=== PATIENT | female | born 1990 | race Caucasian/White ===

== ENCOUNTER 2021-11-01 10:24 | Outpatient (REF) | payer OTHER, SELFPAY ==
[2021-11-01 10:32] LABS: MANUAL DIFF FLAG NO
[2021-11-01 10:38] LABS: Basophils Percent Auto 0.4 % (0-2); Eosinophils Absolute Auto 0.1 X10*3/uL (0.0-0.4); Eosinophils Percent Auto 1.7 % (0-4); Hematocrit 43.6 % (37.0-47.0); Hemoglobin 14.4 g/dl (12.0-16.0); Imm Gran Abs Auto 0.02 X10*3/uL (0.00-0.03); Imm Gran Pct Auto 0.3 % (0.0-0.4); Lymphocytes Absolute Auto 1.7 X10*3/uL (1.2-4.9); Lymphocytes Percent Auto 23.9 % (20-40); Mean Platelet Volume 10.6 fL (9.4-12.3); Monocytes Absolute Auto 0.6 X10*3/uL (0.1-1.2); Monocytes Percent Auto 8.9 % (2-11); Neutrophils Absolute Auto 4.7 x10*3/uL (2.0-8.3); Neutrophils Percent Auto 64.8 % (45-73); Platelet Count 284 X10*3/uL (160-400); Red Blood Count 4.64 X10*6/uL (4.20-5.50); Red Cell Distribution Width 12.4 % (11.0-16.0); White Blood Count 7.2 X10*3/uL (4.8-10.8)
[2021-11-01 10:54] LABS: Alanine Aminotransferase 16 U/L (0-31); Albumin Level 4.7 g/dL (3.5-5.0); Alkaline Phosphatase 64 U/L (39-117); Anion Gap 11 (12-20); Aspartate Amino Transferase 18 U/L (5-31); Bilirubin Total 0.8 mg/dL (0.0-1.0); Blood Urea Nitrogen 14 mg/dL (9-16); Calcium 10.1 mg/dL (8.4-10.2); Carbon Dioxide 30 mmol/L (22-29); Chloride 101 mmol/L (96-108); Cholesterol 184 mg/dL; Estimated Glomerular Filt Rate > 60; Glucose Fasting 97 mg/dL (60-99); HDL Cholesterol 70 mg/dL; LDL Cholesterol Calculated 102 mg/dl; Potassium 4.4 mmol/L (3.3-5.1); Sodium 138 mmol/L (135-145); Total Protein 7.7 g/dL (6.5-8.0); Triglycerides 64 mg/dL
== END 2021-11-01 10:25 | disposition home or self-care (01) ==
LOC: HO.LNP 10:24
PROVIDERS: Visit Provider Internal Medicine
DX: Z00.00 Encounter for general adult medical examination without abnormal findings (principal); F51.01 Primary insomnia; J35.8 Other chronic diseases of tonsils and adenoids; F41.9 Anxiety disorder, unspecified; F34.1 Dysthymic disorder; Z82.79 Family history of other congenital malformations, deformations and chromosomal abnormalities
CPT/HCPCS: 80053; 80061; 85025

== ENCOUNTER 2021-11-08 10:32 | Outpatient (REF) | payer OTHER, SELFPAY ==
[2021-11-08 10:56] LABS: Appearance Urine HAZY; Color Urine YELLOW; Glucose Urine UA NEG (NEG); Leukocyte Esterase Urine NEG (NEG); Nitrite Urine NEG (NEG); Urine Blood NEG (NEG); Urine Ketones NEG (NEG); Urine Protein NEG (NEG-TRACE)
[2021-11-08 11:16] LABS: Bacteria Urine 3+ /LPF; RBC Urine 0 /HPF (0); Squamous Epithelial Cell Urine 3+ /LPF; WBC Urine 0-2 /HPF (0-4)
== END 2021-11-08 10:33 | disposition home or self-care (01) ==
LOC: HO.LNP 10:32
PROVIDERS: PCP Internal Medicine; Visit Provider Internal Medicine
DX: R31.9 Hematuria, unspecified (principal)
CPT/HCPCS: 81001; 87086

== ENCOUNTER 2022-11-10 10:36 | Outpatient (REF) | payer OTHER, SELFPAY ==
[2022-11-10 10:38] LABS: MANUAL DIFF FLAG NO
[2022-11-10 10:50] LABS: Basophils Percent Auto 0.6 % (0-2); Eosinophils Absolute Auto 0.1 X10*3/uL (0.0-0.4); Eosinophils Percent Auto 1.6 % (0-4); Hematocrit 39.9 % (37.0-47.0); Hemoglobin 13.4 g/dl (12.0-16.0); Imm Gran Abs Auto 0.02 X10*3/uL (0.00-0.03); Imm Gran Pct Auto 0.3 % (0.0-0.4); Lymphocytes Absolute Auto 1.9 X10*3/uL (1.2-4.9); Lymphocytes Percent Auto 28.7 % (20-40); Mean Corpuscular HGB Conc 33.6 g/dl (31.0-35.0); Mean Corpuscular Hemoglobin 31.3 pg (27.0-33.0); Mean Corpuscular Volume 93.2 fL (80.0-98.0); Mean Platelet Volume 10.1 fL (9.4-12.3); Monocytes Absolute Auto 0.4 X10*3/uL (0.1-1.2); Monocytes Percent Auto 6.6 % (2-11); Neutrophils Absolute Auto 4.2 x10*3/uL (2.0-8.3); Neutrophils Percent Auto 62.2 % (45-73); Platelet Count 276 X10*3/uL (160-400); Red Blood Count 4.28 X10*6/uL (4.20-5.50); Red Cell Distribution Width 12.9 % (11.0-16.0); White Blood Count 6.7 X10*3/uL (4.8-10.8)
[2022-11-10 11:02] LABS: Alanine Aminotransferase 17 U/L (0-31); Albumin Level 4.5 g/dL (3.5-5.0); Alkaline Phosphatase 60 U/L (39-117); Anion Gap 11 (12-20); Aspartate Amino Transferase 21 U/L (5-31); Bilirubin Total 1.1 mg/dL (0.0-1.0); Blood Urea Nitrogen 14 mg/dL (9-16); Calcium 9.3 mg/dL (8.4-10.2); Carbon Dioxide 29 mmol/L (22-29); Chloride 104 mmol/L (96-108); Cholesterol 202 mg/dL; Estimated Glomerular Filt Rate > 60; Glucose Fasting 90 mg/dL (60-99); HDL Cholesterol 68 mg/dL; LDL Cholesterol Calculated 121 mg/dl; Potassium 4.1 mmol/L (3.3-5.1); Sodium 140 mmol/L (135-145); Total Protein 6.9 g/dL (6.5-8.0); Triglycerides 67 mg/dL
[2022-11-10 11:05] LABS: Appearance Urine Cloudy; Color Urine Dark Yellow; Glucose Urine UA Negative (Negative); Leukocyte Esterase Urine Trace (Negative); Nitrite Urine Negative (Negative); Specific Gravity - Urine >= 1.030 (1.005-1.025); UMIC TRIGGER UACC YES; Urine Blood Negative (Negative); Urine Ketones Trace mg/dL (Negative); Urine Protein Trace mg/dL (Neg-Trace)
[2022-11-10 11:10] LABS: Bacteria Urine 4+ (None Seen); WBC Urine 0-5 /HPF (0-5)
== END 2022-11-10 10:37 | disposition home or self-care (01) ==
LOC: HO.LNP 10:36
PROVIDERS: Visit Provider Internal Medicine
DX: Z00.00 Encounter for general adult medical examination without abnormal findings (principal)
CPT/HCPCS: 80053; 80061; 81001; 85025

== ENCOUNTER 2022-11-13 11:33 | Outpatient (REF) | payer OTHER, SELFPAY ==
[2022-11-13 11:52] LABS: Appearance Urine Clear; Color Urine Yellow; Glucose Urine UA Negative (Negative); Leukocyte Esterase Urine Negative (Negative); Nitrite Urine Negative (Negative); PH 7.5 (5.0-9.0); Specific Gravity - Urine <= 1.005 (1.005-1.025); Urine Blood Negative (Negative); Urine Ketones Negative (Negative); Urine Protein Negative (Neg-Trace)
[2022-11-13 11:58] LABS: Bacteria Urine Trace (None Seen); Hyaline Casts Urine 0-2 /LPF (0-2); RBC Urine 0-2 /HPF (0-2); Squamous Epithelial Cell Urine 0-2 /HPF (0-2); WBC Urine 0-5 /HPF (0-5)
== END 2022-11-13 11:34 | disposition home or self-care (01) ==
LOC: HO.LNP 11:33
PROVIDERS: Visit Provider Internal Medicine
DX: R31.9 Hematuria, unspecified (principal)
CPT/HCPCS: 81001

== ENCOUNTER 2023-07-03 15:03 | Outpatient (REF) | payer OTHER, SELFPAY ==
--- NOTE | ~2023-07-03 | XR_ITS ---
EXAMINATION: XR CHEST CLINICAL INFORMATION: Bronchitis. COMPARISON: None available. TECHNIQUE: 2 views of the chest were obtained. FINDINGS: No significant abnormality is noted involving the heart, lungs, mediastinum, bony thorax or soft tissues. XR/XR chest 2V IMPRESSION: Unremarkable examination.
== END 2023-07-03 15:04 | disposition home or self-care (01) ==
LOC: HO.HMGCX 15:03
PROVIDERS: PCP Internal Medicine; Visit Provider Internal Medicine
DX: J40 Bronchitis, not specified as acute or chronic (principal)
CPT/HCPCS: 71046

== ENCOUNTER 2023-11-09 12:14 | Outpatient (REF) | payer OTHER, SELFPAY ==
[2023-11-09 12:17] LABS: MANUAL DIFF FLAG NO
[2023-11-09 12:23] LABS: Basophils Percent Auto 0.4 % (0-2); Eosinophils Absolute Auto 0.2 X10*3/uL (0.0-0.4); Eosinophils Percent Auto 3.8 % (0-4); Hematocrit 41.8 % (37.0-47.0); Hemoglobin 14.3 g/dl (12.0-16.0); Imm Gran Abs Auto 0.01 X10*3/uL (0.00-0.03); Imm Gran Pct Auto 0.2 % (0.0-0.4); Lymphocytes Absolute Auto 2.1 X10*3/uL (1.2-4.9); Lymphocytes Percent Auto 38.7 % (20-40); Mean Corpuscular HGB Conc 34.2 g/dl (31.0-35.0); Mean Corpuscular Hemoglobin 31.5 pg (27.0-33.0); Mean Corpuscular Volume 92.1 fL (80.0-98.0); Mean Platelet Volume 10.1 fL (9.4-12.3); Monocytes Absolute Auto 0.4 X10*3/uL (0.1-1.2); Monocytes Percent Auto 7.8 % (2-11); Neutrophils Absolute Auto 2.7 x10*3/uL (2.0-8.3); Neutrophils Percent Auto 49.1 % (45-73); Platelet Count 218 X10*3/uL (160-400); Red Blood Count 4.54 X10*6/uL (4.20-5.50); Red Cell Distribution Width 12.2 % (11.0-16.0); White Blood Count 5.5 X10*3/uL (4.8-10.8)
[2023-11-09 12:42] LABS: Alanine Aminotransferase 22 U/L (0-31); Albumin Level 4.4 g/dL (3.5-5.0); Alkaline Phosphatase 56 U/L (39-117); Anion Gap 12 (12-20); Aspartate Amino Transferase 21 U/L (5-31); Bilirubin Total 0.5 mg/dL (0.0-1.0); Blood Urea Nitrogen 11 mg/dL (9-16); Calcium 9.5 mg/dL (8.4-10.2); Carbon Dioxide 29 mmol/L (22-29); Chloride 103 mmol/L (96-108); Cholesterol 196 mg/dL (<200); Estimated Glomerular Filt Rate > 60; Glucose Fasting 87 mg/dL (60-99); HDL Cholesterol 59 mg/dL (>40); LDL Cholesterol Calculated 114 mg/dL (<100); Potassium 3.9 mmol/L (3.3-5.1); Sodium 140 mmol/L (135-145); Total Protein 7.6 g/dL (6.5-8.0); Triglycerides 117 mg/dL (<150)
[2023-11-09 12:43] LABS: Appearance Urine Clear; Color Urine Yellow; Glucose Urine UA Negative (Negative); Leukocyte Esterase Urine Trace (Negative); Nitrite Urine Negative (Negative); Specific Gravity - Urine 1.025 (1.005-1.025); UMIC TRIGGER UACC YES; Urine Blood Negative (Negative); Urine Ketones Negative (Negative); Urine Protein Negative (Neg-Trace)
[2023-11-09 12:48] LABS: Bacteria Urine 1+ (None Seen); Hyaline Casts Urine 0-2 /LPF (0-2); RBC Urine 0-2 /HPF (0-2); WBC Urine 0-5 /HPF (0-5)
== END 2023-11-09 12:15 | disposition home or self-care (01) ==
LOC: HO.LNP 12:14
PROVIDERS: Visit Provider Internal Medicine
DX: Z00.00 Encounter for general adult medical examination without abnormal findings (principal)
CPT/HCPCS: 80053; 80061; 81001; 85025

== ENCOUNTER 2023-11-24 16:09 | Outpatient (REF) | payer OTHER, SELFPAY ==
--- NOTE | ~2023-11-24 | US_ITS ---
EXAMINATION: US EXTREMITY, NONVASCULAR CLINICAL INFORMATION: Axillary adenitis. COMPARISON: None available. TECHNIQUE: Using a linear transducer with grayscale and color modalities, ultrasound examination is performed of the right axillary region. FINDINGS: Corresponding with the palpable finding the upper right axillary region, a 3 x 2 x 3 mm hypoechoic, subdermal lesion is noted. Shows no associated color Doppler flow and no significant change in through sound transmission. The adjacent cutaneous, subcutaneous, muscular and fascial planes are unremarkable. No sizable lymphadenopathy is seen. US/US extremity nonvascular IMPRESSION: Corresponding with the palpable finding in the upper right axillary region, a 3 mm subdermal hypoechoic collection is seen. Likely differential considerations include an epidermal inclusion cyst and a nonpathologically enlarged lymph node. Recommend management on a clinical basis. No sizable lymphadenopathy is seen.
== END 2023-11-24 16:10 | disposition home or self-care (01) ==
LOC: HO.US 16:09
PROVIDERS: PCP Internal Medicine; Visit Provider Internal Medicine
DX: I88.9 Nonspecific lymphadenitis, unspecified (principal); R22.31 Localized swelling, mass and lump, right upper limb
CPT/HCPCS: 76882

== ENCOUNTER 2024-11-11 09:44 | Outpatient (REF) | payer OTHER, SELFPAY ==
[2024-11-11 09:47] LABS: MANUAL DIFF FLAG NO
[2024-11-11 10:07] LABS: Basophils Percent Auto 0.6 % (0-2); Eosinophils Absolute Auto 0.1 X10*3/uL (0.0-0.4); Eosinophils Percent Auto 1.8 % (0-4); Hematocrit 39.1 % (37.0-47.0); Hemoglobin 13.2 g/dl (12.0-16.0); Lymphocytes Absolute Auto 1.7 X10*3/uL (1.2-4.9); Lymphocytes Percent Auto 33.1 % (20-40); Mean Corpuscular HGB Conc 33.8 g/dl (31.0-35.0); Mean Corpuscular Hemoglobin 30.8 pg (27.0-33.0); Mean Corpuscular Volume 91.4 fL (80.0-98.0); Mean Platelet Volume 9.7 fL (9.4-12.3); Monocytes Absolute Auto 0.3 X10*3/uL (0.1-1.2); Monocytes Percent Auto 5.4 % (2-11); Neutrophils Absolute Auto 2.9 x10*3/uL (2.0-8.3); Neutrophils Percent Auto 59.1 % (45-73); Platelet Count 263 X10*3/uL (160-400); Red Blood Count 4.28 X10*6/uL (4.20-5.50); Red Cell Distribution Width 12.4 % (11.0-16.0)
[2024-11-11 10:18] LABS: Alanine Aminotransferase 22 U/L (0-31); Albumin Level 4.2 g/dL (3.5-5.0); Alkaline Phosphatase 63 U/L (39-117); Anion Gap 9 (12-20); Aspartate Amino Transferase 28 U/L (5-31); Bilirubin Total 0.8 mg/dL (0.0-1.0); Blood Urea Nitrogen 13 mg/dL (9-16); Calcium 9.1 mg/dL (8.4-10.2); Carbon Dioxide 27 mmol/L (22-29); Chloride 107 mmol/L (96-108); Cholesterol 191 mg/dL (<200); Estimated Glomerular Filt Rate > 60; Glucose Fasting 93 mg/dL (60-99); HDL Cholesterol 64 mg/dL (>40); LDL Cholesterol Calculated 113 mg/dL (<100); Sodium 139 mmol/L (135-145); Triglycerides 74 mg/dL (<150)
== END 2024-11-11 09:45 | disposition home or self-care (01) ==
LOC: HO.LNP 09:44
PROVIDERS: Visit Provider Internal Medicine
DX: Z00.00 Encounter for general adult medical examination without abnormal findings (principal)
CPT/HCPCS: 80053; 80061; 85025

== ENCOUNTER 2024-11-18 08:51 | Outpatient (REF) | payer OTHER, SELFPAY ==
[2024-11-18 10:56] LABS: Appearance Urine Cloudy; Color Urine Yellow; Glucose Urine UA Negative (Negative); Leukocyte Esterase Urine Negative (Negative); Nitrite Urine Negative (Negative); PH 6.5 (5.0-9.0); Urine Blood Negative (Negative); Urine Ketones Negative (Negative); Urine Protein Negative (Neg-Trace)
[2024-11-18 11:04] LABS: Bacteria Urine Trace (None Seen); Hyaline Casts Urine 0-2 /LPF (0-2); RBC Urine 0-2 /HPF (0-2); Squamous Epithelial Cell Urine 0-2 /HPF (0-2); WBC Urine 0-5 /HPF (0-5)
--- OUTSIDE RECORDS SUMMARY | 2024-11-18 11:07 | XMS_ITS ---
Author Organization Sourva Cobb MD Address [address] [place], [place] [id number] Care Team Providers Care Muff Winder Name Role Phone Sourav Cobb Primary Care Provider Allergies Allergen (clinical drug ingredient) Drug/Non Drug Allergy documented on EMR Reaction Allergy Type Onset Date Status ciprofloxacin Cipro rash Drug Allergy Act emmett Results Component Value Reference Range Notes UA ClnCatch+Micro w/rflx Cul t (Not yet reviewed by provider) Interpretation: Performing Lab:[facility], [address] [place] [phone] Notes/Report: Urine, Clean Catch Color Urine Yellow Appearance Urine Cloudy PH 6.5 5.0-9.0 Glucose Urine UA Negative Negative mg/dL Urine Blood Negative Negative Specific [place] - Urine 1.020 1.005-1.025 Urine Protein Negative [...] Labyrinthine dysfunc tion, 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) Referral Organization Sourav Cbob MD Referring Provider First Name Sourav Referring Provider Last Name Reza Referring Provider Speciality Internal M edicine Referred Provider [facility] 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) Active confirmed Vital Signs Blood pressure systolic 104 mm Hg 11/19/19 25 Blood pressure diastolic 62 mm Hg 025 Height 64.25 in 11/18/2024 Weight 143 lbs 11/18/2024 BMI 24.35 kg/m2 11/18/2024 weight is down 3 pounds the [facility] e 11-16-23 Encounters Encounter Location Date Provider Diagnosis Sourav Cobb MD [address] [place] [address] [address] [place], [place] [phone] 11/18/2024 Sourav Cobb Annual physical exam Z00.00 [...] e current regiment Depression screening negative screen Pending Test Test Name Order Date TSH reflex Free T4 11/18/2024 UA ClnCatch+Micro w/rflx Cult 11/18/2024 Referrals Referral Date Details 11/18/2024 11/18/2024, Labyrint les dysfunction bilateral please eval and treat for labyrinth therapy, [facility] Next Appt Details Follow Up: 6 Months, Reason: Provider Name:Sourav camarena, 06/06/2025 08:30:00 AM, [address] [place] [address], [address], [place], [place], [phone], Provider Name:Sourav camarena, 10/26/2025 07:00:00 AM, [address] [place] [address], [address], [place], [place], [phone], Provider Name:Sourav Chiu ier, 11/02/2025 08:30:00 AM, [address], [address], [place], [phone], Progress Notes * Stephani CHAMBERS ADOB:1990 (33 yo F)Acc No.[id number]:11/18/2024 Progress Notes Patient:?Stephani CHAMBERS A Provider:?Sourav Cobb MD :1990???Age:33 Y???Sex:Female D ate:11/18/2024 Address:[address] [place], [place] [id number] Subjective: * Chief Complaints: * ???1. ANNUAL EXAM. * HPI: ???Depression Screening:?PHQ-9?Little interest or pleasure in doing things?Not at all,?Feeling down, depressed, or hopeless?Not at all,?Trouble falling or staying asleep, or sleeping too much?Not at all,?Feeling tired or having little energy?Not at all,?Poor appetite or overeating?Not at all,?Feeling bad about yourself or that you are a failure, or have let yourself or your family down?Not at all,?Trouble concentrating on things, such as reading the newspaper or watching television?Not at all,?Moving or speaking so slowly that other people could have noticed; or the opposite, being so fidgety or restless that you have been moving around a lot more than usual?Not at all,?Thoughts that you would be better off or of hurting yourself in some way?Not at all,?Total Score?0.?Interpretation and Intervention?Depression Screening Findings?Negative,?Follow-Up for Depression?: review of PHQ-9 found negative result, no follow-up needed.? gets light headed for a couple seconds at time. today. ???Communication Needs:?Communication Needs?Does the patient have a hearing impairment?No,?Does the patient have a vision impairment??Yes,?If yes, what is the vision impairment??Contact Lenses,?Does the patient have a cognition impairment??No.?SDOH Questions:?SDOH Questions?In the past year have you been worried about losing housing??No,?In the past year have you or any family members you live with been unable to get any of the following when it was really needed? Check all that apply:?None.?Symptom(s):?patient is a 33 yo female here for ann visit with review of recent labs and follow up of chronic issue. * ROS:?General/Constitutional:?Change in appetite?denies.?Chills?denies.?Fever?denies.?Ophthalmologic:?Blurred vision?denies.?Discharge?denies.?Pain?denies.?ENT:?Decreased hearing?denies.?Sore throat?denies.?Swollen glands?denies.?Endocrine:?Cold intolerance?denies.?Excessive thirst?denies.?Heat intolerance?denies.?Weight loss?denies.?Respiratory:?Cough?denies.?Shortness of breath at rest?denies.?Shortness of breath with exertion?denies.?Wheezing?denies.?Cardiovascular:?Chest pain at rest?denies.?Chest pain with exertion?denies.?Irregular heartbeat?denies.?Shortness of breath?denies.?Gastrointestinal:?Abdominal pain?denies.?Change in bowel habits?denies.?Diarrhea?denies.?Nausea?denies.?Rectal bleeding?denies.?Vomiting?denies .?Genitourinary:?Blood in urine?denies.?Difficulty urinating?denies.?Frequent urination?denies.?Urinary incontinence?Denies.?Musculoskeletal:?Patient complaining of?lumps in both axilla.?Painful joints?denies.?Weakness?denies.?Skin:?Dry skin?denies.?Itching?denies.?Denies?Mole(s),? changes in moles, new moles or any lesions of concern.?Denies?Photosensitivity.?Rash?denies.?Neurologic:?Dizziness?denies.?Fainting?denies.?Headache?denies.? 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 * Family History:?Father: alimariluz e 64 yrs.?Mother: alive 63 yrs.?Maternal Grand Mother: , diabetes.?1 brother(s) , 1 sister(s) . 1 daughter(s) . .? Father-Healthy Parkinson's Mother-Healthy, Denies mental health/substance abuse family history, Denies mental health/substance abuse family history. * Social History:?Tobacco Use:?Tobacco Use/Smoking?Patient is a?nonsmoker,?Additional Findings: Tobacco Non-User?Current non-smoker, currently using no form of tobacco.?Drugs/Alcohol:?Alcohol Screen?Did you have a drink containing alcohol in the past year??Yes,?How often did you have a drink containing alcohol in the past year??2 to 4 times a month (2 points),?How many drinks did you have on a typical day when you were drinking in the past year??1 or 2 drinks (0 point),?How often did you have 6 or more drinks on one occasion in the past year??Never (0 point),?Points?2,?Interpretation?Negative.?Miscellaneous:?Caffeine: yes, frequency:, 1-2 cups per day. Children: yes. 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 Exercise: yes, walking and stretching. Housing: renting with her daughter. Living with: daughter. Marital status: single. Occupation: works full-time. Pets: none. Travel outside of the [place]: no. * Medications:?Taking Mirena ( 52 MG) 20 MCG/24HR Intrauterine Device Intrauterine , Taking Albuterol Sulfate HFA 108 (90 Base) MCG/ACT Aerosol Solution 1 puff as needed Inhalation every 4 hrs , Taking Advair Diskus 250-50 MCG/ACT Aerosol Powder Breath Activated 1 puff Inhalation Twice a day , Taking Sertraline HCl 100 MG Tablet TAKE ONE TABLET BY MOUTH EVERY DAY , Not-Taking/PRN Tylenol Extra Strength 500 MG Tablet 1 tablet as needed Orally every 6 hrs , Not-Taking/PRN Lexapro 10 MG Tablet 1 tablet Orally Once a day , Not-Taking/PRN Ambien 5 MG Tablet 1 tablet at bedtime Orally Once a day , Not-Taking/PRN Ventolin HFA * 0 Aerosol Solution 2 puffs as needed Inhalation every 4 hrs , Medication List reviewed and reconciled with the patient * Allergies:?Cipro: rash. Objective: * Vitals:?Ht: 64.25, Wt: 143, BMI:24.35, BP:104/62, Wt-k.86. weight is down 3 pounds since 11-16-23. * ???Past Orders: ???Lab:Complete Blood Count Auto Diff (Order Date - 11/11/2024) (Collection Date & Time - 11/11/2024 07:30 AM) ? Value Reference Range ?White Blood Count 5.0 4. 8-10.8 - X10*3/uL ?Red Blood Count 4.28 4.20 -5.50 - X10*6/uL ?Hemoglobin 13.2 12.0-16.0 - g/dl ?Hematocrit 39.1 37.0-47.0 - % ?Mean Corpuscular Volume 91.4 80.0-98.0 - fL ?Mean Corpuscular Hemoglobin 30.8 27.0-33.0 - pg ?Mean Corpuscular HGB Conc 33.8 31.0-35.0 - g/dl ?Red Cell Distribution Width 12.4 11.0-16.0 - % ?Platelet Count 263 160-4 00 - X10*3/uL ?Mean Platelet Volume 9.7 9.4-12.3 - fL ?Neutrophils Percent Auto 59.1 45-73 - % ?Imm Gran Pct Auto 0.0 0. 0-0.4 - % ?Lymphocytes Percent Auto 33.1 20-40 - % ?Monocytes Percent Auto 5.4 2-11 - % ?Eosinophils Percent Auto 1.8 0-4 - % ?Basophils Percent Auto 0.6 0-2 - % ?NRBC Pct Auto 0.0 0.0-0. 2 - /100WBC ?Neutrophils Absolute Auto 2.9 2.0-8.3 - x10*3/uL ?Imm Gran Abs Auto 0.00 0. 00-0.03 - X10*3/uL ?Lymphocytes Absolute Auto 1.7 1.2-4.9 - X10*3/uL ?Monocytes Absolute Auto 0.3 0.1-1.2 - X10*3/uL ?Eosinophils Absolute Auto 0.1 0.0-0.4 - X10*3/uL ?Basophils Absolute Auto 0.0 0.0-0.2 - X10*3/uL ?NRBC Abs Auto 0.000 0.0-0. 012 - X10*3/uL ???Lab:Comprehensive [place]. P ivana Fast (Order Date - 11/11/2024) (Collection Date & Time - 11/11/2024 07:30 AM) ? Value Reference Range ?Sodium 139 135-145 - mmo l/L ?Bilirubin Total 0.8 0.0- 1.0 - mg/dL ?Aspartate Amino Transferase 28 5-31 - U/L ?Alanine Aminotransferase 22 0-31 - U/L ?Total Protein 7.0 6.5-8. 0 - g/dL ?Albumin Level 4.2 3.5-5. 0 - g/dL ?Alkaline Phosphatase 63 39-117 - U/L ?Potassium 4.0 3.3-5.1 - mmol/L ?Chloride 107 96-108 - mm ol/L ?Carbon Dioxide 27 22-29 - mmol/L ?Anion Gap 9 L 12-20 - ?Blood Urea Nitrogen 13 9-16 - mg/dL ?Creatinine 0.68 0.5-1.4 - mg/dL ?Estimated Glomerular Filt Rate > 60 - ?Glucose Fasting 93 60-9 9 - mg/dL ?Calcium 9.1 8.4-10.2 - m g/dL ???Lab:Lipid Panel (Order Da te - 11/11/2024) (Collection Date & Time - 11/11/2024 07:30 AM) ? Value Reference Range ?Triglycerides 74 <150 - mg/dL ?Cholesterol 191 <200 - m g/dL ?LDL Cholesterol Calculated 113 H <100 - mg/dL ?HDL Cholesterol 64 >40 - mg/dL * Examination: ???General Examination: ?GENERAL APPEARANCE:?well developed, well nourished, in no acute distress.?HEAD:?normocephalic, atraumatic.?EYES:?pupils equal, round, reactive to light and accommodation, sclera non-icteric.?EARS:?normal.?ORAL CAVITY:?mucosa moist.?THROAT:?clear.?NECK/THYROID:?neck supple, full range of motion, no cervical lymphadenopathy, no bruits with a pea sized node in the laeft ant chain that is smooth and freely movable and feels benign.?SKIN:?warm and dry, no suspicious lesions.?HEART:?regular rate and rhythm, S1, S2 normal, no murmurs.?LUNGS:?clear to auscultation bilaterally.?BREASTS:?No mass, no lump.?ABDOMEN:?soft, nontender, nondistended, bowel sounds present, normal, no organomegaly , no masses palpable.?RECTAL EXAM:?done by supervisor packing.?FEMALE GENITOURINARY:?done by supervisor packing.?EXTREMITIES:?no clubbing, cyanosis, or edema on careful exam of both axillae there is no lump felt and the area of which she is concerned feels like a muscle.?NEUROLOGIC:?nonfocal, motor strength normal upper and lower extremities, sensory exam intact.? Assessment: * Assessment: 1.?Annual physical exam - Z0 0.00???2.?Labyrinthine dysfunction, bilateral - H83.2X3???3.?Lethargy - R53.83???4.?Anxiety - F41.9???5.?Depression screening - Z13.31??? Plan: * Treatment: 2.?Labyrinthine dysfunction, bilateral? Notes: refer to physical therap for labyrinth therapy? Referral To:[facility]??Physical Therapist ?Reason:Labyrinthine dysfunction bilateral please eval and treat for labyrinth therapy 3.?Lethargy? Notes: pending labs, will continue to monitor?? 4.?Anxiety? Notes: stable, will continue current regiment?? 5.?Depression screening? Notes: negative screen?? * Procedure Codes:?57564 VENIP UNCT, ROUTINE* * Follow Up:?6 Months * * The named appointment provid er may or may not be the originator of this progress note, and it is not deemed complete until electronically signed by the appointment provider. Sign off status: Pending * Provider:?Sourav Cobb MD Date:?0 11/18/2024 Generated for Stewart garcia/Criss/Babatundeitting on:?11/18/2024 11:07 AM EDT History and Physical Notes * HPI [...] patient have a vision impairmen t?: Yes ?If yes, what is the vision impairment?: Contact Lenses Does the patient have a cognition impair ment?: No Examination Category Sub-Category Detail Notes Category Not es General Examination GENERAL APPEARANCE: well dev eloped, well nourished, in no acute distress HEAD: normocephalic, atrau matic EYES: pupils equal, round, reactive to light and accommodation, sclera non- icteric EARS: normal THROAT: clear NECK/THYROID: neck supple, [...] mass, no lump RECTAL EXAM: done by supervisor packing FEMALE GENITOURINARY: done by supervisor packing ORAL CAVITY: mucosa moist Consultation Request Notes Referral Date Referring Provider Referred Provider Not 11/18/2024 Sourav Cobb [facility] Labyrinth ine dysfunction bilateral please eval and treat for labyrinth therapy
--- OUTSIDE RECORDS SUMMARY | 2024-11-18 11:07 | XMS_ITS ---
Author Organization Sourav Cobb MD Address [address] [facility] [address] [place] [phone] Care Team Providers Care Automation Software Engineer Name Role Phone Sourav Cobb Primary Care Provider REASON FOR VISIT referral to fish and wildlife biologist Encounters Encounter Location Date Provider Diagnosis Sourav Cobb MD [address] [place] [address] [place] [phone] 06/06/2024 Sourav Cobb Plan Of Treatment Next Appt Details Provider Name:Sourav camarena, 06/06/2025 08:30:00 AM, [address] [place] [address], [address], [phone], Provider Name:Sourav Chiu iejad, 10/26/2025 07:00:00 AM, [address] [place] [address], [address], [phone], Provider Name:Sourav Chiu ier, 11/02/2025 08:30:00 AM, [address] [place] [address], [phone], Progress Notes * NAN Stephani ADOB:1990 (33 yo F)Acc No.[id number]:06/06/2024 Patient:?NanStephani :1990???Age:33 Y???Sex:Female Address:[address] [place] [address], [place], [address] Subjective: * Chief Complaints: * ???Referral to fish and wildlife biologist * Medical History:? * Surgical History:? * Hospitalization/Major Diagno stic Procedure:? * Medications:? Objective: Assessment: Plan: * Treatment: * Procedure Codes:? * true * Date:? Generated for Stewart garcia/Criss/Jona on:?11/18/2024 11:07 AM EDT
--- OUTSIDE RECORDS SUMMARY | 2024-11-18 11:07 | XMS_ITS ---
Author Organization Sourav Cobb MD Address [address] [place], [place] [phone] Care Team Providers Care Stamp Clerk Name Role Phone Sourav Cobb Primary Care Provider Results Component Value Reference Range Notes Complete Blood Count Auto Di ff Reviewed date:11/11/2024 03:37:09 PM Interpretation: Performing Lab:[facility], [address] [place] [phone] Notes/Report: White Blood Count 5.0 4.8-10.8 X10*3/uL [...] NRBC Abs Auto 0.000 0.0-0.012 X10*3/uL Comprehensive [place]. Panel Fa st Reviewed date:11/11/2024 10:29:23 AM Interpretation: Performing Lab:[address] [phone] Notes/Report: Sodium 139 135-145 mmol/L Potassium 4.0 [...] Panel Reviewed date:11/11/2024 10:25:56 AM Interpretation: Performing Lab:[facility], [address] [place] [phone] Notes/Report: Triglycerides 74 <150 mg/dL Desirable Triglyceride: [...] Location Date Provider Diagnosis Sourav Cobb MD [address] [place] [phone] 11/11/2024 Sourav Cobb Blood tests for routine general physical examination Z00.00 Assessments Encounter Date Diagnosis (ICD Code) Assessment Notes Treatment Notes Treatment Clinical Notes Section Notes 11/11/2024 Blood tests for routine general physical examination (ICD-10 - Z00.00) Plan Of Treatment Pending Test Test Name Order Date UA ClnCatch+Micro w/rflx Cult 11/11/2024 Next Appt Details Provider Name:Sourav camarena, 06/06/2025 08:30:00 AM, [address] [place] [address], [address], [phone], Provider Name:Sourav camarena, 10/26/2025 07:00:00 AM, [address] [place] [address], [address], [phone], Provider Name:Sourav garcíar, 11/02/2025 08:30:00 AM, [address] [place] [address], [phone], Progress Notes * NANStephani ADOB:1990 (33 yo F)Acc No.[id number]:11/11/2024 Progress Note Patient:?Stephani CHAMBERS Cuong Provider:?Sourav Cobb MD :1990???Age:33 Y???Sex:Female D ate:11/11/2024 Address:[address] [facility] Subjective: * Chief Complaints: * ???1. FASTING LABS. * Medical History:? Objective: * Vitals:? Assessment: * Assessment: 1.?Blood tests for routine g eneral physical examination - Z00.00 (Primary)??? Plan: * Treatment: * Procedure Codes:?86203 VENIP UNCT, ROUTINE* * * The named appointment provid er may or may not be the originator of this progress note, and it is not deemed complete until electronically signed by the appointment provider. Sign off status: Pending * Provider:?Sourav Cobb MD Date:?0 11/11/2024 Generated for Stewart garcia/Criss/Babatundeitting on:?11/18/2024 11:07 AM EDT
--- OUTSIDE RECORDS SUMMARY | 2024-11-18 11:08 | XMS_ITS | Patient Health Record ---
Author Organization Sourav Cobb MD Address [address] [place], [place] [id number] Care Team Providers Care Informatics Developer Name Role Phone Sourav Cobb Primary Care Provider Allergies Allergen (clinical drug ingredient) Drug/Non Drug Allergy documented on EMR Reaction Allergy Type Onset Date Status ciprofloxacin Cipro rash Drug Allergy Act emmett Results Component Value Reference Range Notes Complete Blood Count Auto Di ff Reviewed date:11/11/2024 03:37:09 PM Interpretation: Performing Lab:[facility], [address] [place] [phone] Notes/Report: White Blood Count 5.0 4.8-10.8 X10*3/uL [...] 0.0-0.2 /100WBC Neutrophils Absolute Auto 2.9 2.0-8.3 x10*3/uL Imm Gran Abs Auto 0.00 0.00-0.03 X10*3/uL Lymphocytes Absolute Auto 1.7 1.2-4.9 X10*3/uL Monocytes Absolute Auto 0.3 0.1-1.2 X10*3/uL Eosinophils Absolute Auto 0.1 0.0-0.4 X10*3/uL Basophils Absolute Auto 0.0 0.0-0.2 X10*3/uL NRBC Abs Auto 0.000 0.0-0.012 X10*3/uL Comprehensive [place]. Panel Fa Reviewed date:11/11/2024 10:29:23 AM Interpretation: Performing Lab:[facility], [address] [place] [phone] Notes/Report: Sodium 139 135-145 mmol/L Potassium 4.0 [...] Panel Reviewed date:11/11/2024 10:25:56 AM Interpretation: Performing Lab:[facility], [address] [place] [phone] Notes/Report: Triglycerides 74 <150 mg/dL Desirable Triglyceride: [...] liver disease. UA ClnCatch+Micro w/rflx Cul t (Not yet reviewed by provider) Interpretation: Performing Lab:[facility], [address] [place] [phone] Notes/Report: Urine, Clean Catch Color Urine Yellow Appearance Urine Cloudy PH 6.5 5.0-9.0 Glucose Urine UA Negative Negative mg/dL Urine Blood Negative Negative Specific Jay - Urine 1.020 1.005-1.025 Urine Protein Negative Neg-Trace mg/dL Urine Ketones Negative Negative mg/dL Nitrite Urine Negative Negative Leukocyte Esterase Urine Negative Negative RBC Urine 0-2 0-2 /HPF WBC Urine 0-5 0-5 /HPF Squamous Epithelial Cell Urine 0-2 0-2 /HPF Bacteria Urine Trace None Seen Hyaline Casts Urine 0-2 0-2 /LPF US extremity nonvascular Reviewed date:12/18/2023 07:20:07 AM Interpretation: Performing Lab: Notes/Report: [address] [address] Ultrasound Report Signed with Addenda Patient: Stephani Chambers MR#: [id number] 6 : 1990 Acct:[id number] Age/Sex: 32 / F ADM Date: 11/24/23 Loc: HO.US Attending Dr: Sourav Cobb MD Ordering Physician: Sourav Cobb MD Date of Service: 11/24/23 Procedure(s): US extremity nonvascular Accession Number(s): [id number] cc: Sourav Cobb MD ADDENDUM FINDINGS: Ultrasound comparison images are obtained by the technologist of the contralateral left axilla, which is asymptomatic. These images are normal, without mass, fluid collection or lymphadenopathy noted. Addendum Dictated By: Mark Torres MD Addendum Signed By: <Electronically signed by Mark Torres MD in OV> 12/17/23 1841 Addendum Cosigned By: DD/ /09/1633 TD/TT: / EXAMINATION: US EXTREMITY, NONVASCULAR CLINICAL INFORMATION: Axillary adenitis. COMPARISON: None available. TECHNIQUE: Using a linear transducer with grayscale and color modalities, ultrasound examination is performed of the right axillary region. FINDINGS: Corresponding with the palpable finding the upper right axillary region, a 3 x 2 x 3 mm hypoechoic, subdermal lesion is noted. Shows no associated color Doppler flow and no significant change in through sound transmission. The adjacent cutaneous, subcutaneous, muscular and fascial planes are unremarkable. No sizable lymphadenopathy is seen. US/US extremity nonvascular IMPRESSION: Corresponding with the palpable finding in the upper right axillary region, a 3 mm subdermal hypoechoic collection is seen. Likely differential considerations include an epidermal inclusion cyst and a nonpathologically enlarged lymph node. Recommend management on a clinical basis. No sizable lymphadenopathy is seen. Dictated By: Mark Torres MD Signed By: <Electronically signed by Mark Torres MD in OV> 11/25/23 0847 DD/ 32 TD/TT: Dairy Feed Mixing Operator: [address] [address] Ultrasound Report Signed with Addenda Patient: Stephani Chambers MR#: [id number] 6 : 1990 Acct:[id number] Age/Sex: 32 / F ADM Date: 11/24/23 Loc: .US Attending Dr: Sourav Cobb MD Ordering Physician: Sourav Cobb MD Date of Service: 11/24/23 Procedure(s): US extremity nonvascular Accession Number(s): [id number] cc: Sourav Cobb MD ADDENDUM FINDINGS: Ultrasound compariso n images are obtained by the technologist of the contralateral left axilla, which is asymptomatic. These images are normal, without mass , fluid collection or lymphadenopathy noted. Addendum Dictated By : Mark Torres MD Addendum Signed By: <Electronically signed by Mark Torres MD in OV> 12/17/23 1841 Addendum Cosigned By: DD/ /09/1633 TD/TT: / EXAMINATION: US EXTREMITY, NONVASCULAR CLINICAL INFORMATION: Axillary adenitis. COMPARISON: None available. TECHNIQUE: Using a linear trans ducer with grayscale and color modalities, ultrasound examinati on is performed of the right axillary region. FINDINGS: Corresponding with t he palpable finding the upper right axillary region, a 3 x 2 x 3 mm hypoechoic, subdermal lesion is noted. Shows no associated color Dop pler flow and no significant change in through sound transmission. The adjacent cutaneo us, subcutaneous, muscular and fascial planes are unremarkable. No siz able lymphadenopathy is seen. U S/US extremity nonvascular IMPRESSION: Corresponding with t he palpable finding in the upper right axillary region, a 3 mm subde rmal hypoechoic collection is seen. Likely differential considerations include an epidermal inclusion cyst and a nonpathologically enlarged lymph node. Recommend management on a clinical basis. No sizable lymphadenopathy is seen. Dictated By: Brandan Torres MD Signed By: <Electronically signed by Mark Torres MD in OV> 11/25/23 0847 DD/ 163 TD/TT: Actuarial Mathematician ist: ELIZABETH Patino (Not yet reviewed by provider) Interpretation: Performing Lab:[facility], [address] [place] [phone] Notes/Report: Yazmin Patino See Note Specimen held untested for 24 hours; Call to request Chemistry testing. Reason For Referral Reason Labyrinthine dysfunc tion bilateral please eval and treat for labyrinth therapy Diagnosis 1 Labyrinthine dysfunc tion, 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) Referral Organization Sourav Cobb MD Referring Provider First Name Sourav Referring Provider Last Name Reza Referring Provider Speciality Internal M edicine Referred Provider [facility] Referred Provider Specialty Physical The rapist General Notes Tamika Linda 0 11/18/2024 08:57:13 AM > patient will be making her own appt/ referral info faxed Referral Priority Routine Medications Medication SIG (Take, Route, Frequency, Duration) Notes Start Date End Date Status Albuterol Sulfate HFA 108 (90 Base) MCG/ACT 1 puff as needed Inhalation every 4 hrs 06/23/2023 Active Mirena (52 MG) 20 MCG/24HR Intrauterine Active Advair Diskus 250-50 MCG/ACT 1 puff Inhalation Twice a day 11/16/2023 Active Tylenol Extra Strength 500 MG 1 [...] Inhalation every 4 hrs for 17 Not-Taking Immunizations Vaccine Route Administration Date Status Comme nts Flu Vaccine Unknown 06/08/2014 Administered At work Center[facility] Flu Vaccine IM Intramuscular 05/24/2015 Administered Fluarix Quadrivalent IM Intramuscular 06/09/2016 Administered Fluarix Quadrivalent IM Intramuscular 06/23/2017 Administered TDaP Unknown 01/05/2017 Administered pt was given vaccine last summer at [facility], or [facility]. 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) Active confirmed Problem 32579081535030532 Acute recurren t frontal sinusitis (J01.11) Active confirmed Problem 212363391 Family history of congenital heart defect (Z82.79) Active confirmed Problem 46688553 Dysthymia (F34.1) Active confirmed Problem 6960428 Tonsillith (J35.8) Active confirmed Problem 220346148 Active asthma (J45.909) Active confirmed Vital Signs Blood pressure diastolic 62 mm Hg 11/18/2024 bianca ght is down 3 pounds since 11-16-23 Height 64.25 in 11/18/2024 weight is down 3 pounds since 11-16-23 Blood pressure systolic 104 mm Hg 11/18/2024 weig ht is down 3 pounds since 11-16-23 Weight 143 lbs 11/18/2024 weight is down 3 pounds since 11-16-23 BMI 24.35 kg/m2 11/18/2024 weight is down 3 pounds since 11-16-23 Encounters Encounter Location Date Provider Diagnosis Sourav Cobb MD [address] [place] [address] Drive [address] [place] [id number] 11/11/2024 Sourav Cobb Blood tests for routine general physical examination Z00.00 Sourav Cobb MD [address] [place] [address] Drive [address] [place] [id number] 11/18/2024 Sourav Cobb Annual physical exam Z00.00 ; Labyrinthine dysfunction, bilateral H83.2X3 ; Lethargy R53.83 ; Anxiety F41.9 and Depression screening Z13.31 Sourav Cobb MD [address] [place] [address] Drive [address] [place] [id number] 12/17/2023 Sourav Cobb Axillary adenitis I88.9 ; Active asthma J45.909 and Dysthymia F34.1 Sourav Cobb MD [address] [place] [address] Drive [address] [place], [place] [id number] 06/06/2024 Sourav Cobb Assessments Encounter Date Diagnosis (ICD Code) Assessment Notes Treatment Notes Treatment Clinical Notes Section Notes 11/11/2024 Blood tests for routine general physical examination (ICD-10 - Z00.00) 11/18/2024 Annual physical exam (ICD-10 - Z00.00) labs reviewed and discussed with patient, pending labs 12/17/2023 Axillary adenitis (ICD-10 - I88.9) us was negative for anything dangerous. she states the tech did both axilla but they didn't read that. will need to speak to dr torres/ left messaGE for Dr. Torres to call 12/17/2023 Active asthma (ICD-10 - J45.909) doing well. no coughing and the blood taste is gone, will continue current regiment 11/18/2024 Labyrinthine dysfunction, bilateral (ICD-10 - H83.2X3) refer to physical therap for labyrinth therapy 12/17/2023 Dysthymia (ICD-10 - F34.1) feels well but doesn't know if she is in a different space, will continue current regiment 11/18/2024 Lethargy (ICD-10 - R53.83) pending labs, will continue to monitor 11/18/2024 Anxiety (ICD-10 - F41.9) stable, will continue current regiment 11/18/2024 Depression screening (ICD-10 - Z13.31) negative screen Plan Of Treatment Pending Test Test Name Order Date CT ABD & PELVIS NO CONTRAST 11/08/2021 XR CHEST 2 VIEW PA & LAT 07/03/2023 US SOFT TISSUE 11/16/2023 ECHO 05/18/2015 TSH reflex Free T4 11/18/2024 Hold Gold 11/18/2024 UA ClnCatch+Micro w/rflx Cult 11/11/2024 UA ClnCatch+Micro w/rflx Cult 11/18/2024 Next Appt Details Provider Name:Sourav camarena, 06/06/2025 08:30:00 AM, [address], [address], [place], [place], [id number], Provider Name:Sourav camarena, 10/26/2025 07:00:00 AM, [address], [address], [place], [place], [phone], Provider Name:Sourav Chiu ier, 11/02/2025 08:30:00 AM, [address], [address], [place], [place], [id number], Insurance Providers Payer Name Payer Address Payer Phone Subscriber Number Group Number Insured Name Patient Relationship to Insured Coverage Start Date Coverage End Date [facility] [address] [place] [address] [id number] BenedictStephani tapia Self - patient is the insured 7 [place] [address] [phone] [id number] Stephani Chambers Self - patient is the insured Medical (General) History Medical History History 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
[2024-11-18 11:09] LABS: TSH reflex Free T4 1.52 uIU/mL (0.32-4.0)
== END 2024-11-18 08:52 | disposition home or self-care (01) ==
LOC: HO.LNP 08:51
PROVIDERS: Visit Provider Internal Medicine
DX: Z00.00 Encounter for general adult medical examination without abnormal findings (principal)
CPT/HCPCS: 81001; 84443

== ENCOUNTER 2024-12-02 07:54 | Outpatient (RCR) | payer OTHER, SELFPAY ==
[2024-12-02 07:56] VITALS: BP 99/58; PULSE 68
--- NOTE | 2024-12-02 09:19 | MHC.PT.EP ---
[facility] [place] Office [place] Office [place] Office [address] Katie Medrano [address] [phone] F: [phone] F: [phone] F: [phone] F: [phone] Physical Therapy Plan of Care Date of Evaluation: 12/02/24 Date of Surgery: NA Diagnosis: Labyrinthine dysfunction, B Assessment: Stephani is a 33 year old female who is referred to PT for labyrinthine dysfunction, B . She reports of having symptoms of unsteadiness like rocking on the boat and room spinning dizziness for last 6 months. Her symptoms started following a head cold. On PT examination she presented with symptoms of unsteadiness with supine to sit, rolling in bed, walking in grocery store, bending over, - her symptoms lasts only for a few seconds, presented with intact saccades, smooth pursuit, intact visual tracking, negative DVA, negative head thrust, positive for R VBI, negative for BPPV, good static balance and fair dynamic balance (DGI- /24- unsteadiness noted v/h head turns). She presents with very mild symptoms of vestibular hypofunction. She lives with family and is independent with all ADLS, but bumps into wall occasionally. 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 She presents with very mild symptoms of hypofunction and would benefit from trialing balance exercise at home. No PT indicated at this time. She was advised to return to PT in case of worsening of symptoms. Frequency and Duration: The patient will be seen 1/week for 2 weeks Short Term Goals: Public Defender Goals: Reassess for BPPV and balance if pt returns to PT Treatment Plan: Modalities to reduce pain, spasms and effusion. Manual therapy to restore motion and function. Therapeutic exercise to improve strength and flexibility. Neuromuscular re-education for posture and balance. Therapeutic activities to return to functional activities of daily living. Electronically signed by: Miguelina Haskins PT DPT Please sign and return to therapist. Thank you for your referral.
--- NOTE | 2025-01-09 13:39 | MHC.PT.DC ---
[facility] [place] Office [place] Office [place] Office [address] Katie Medrano [address] [facility] [phone] F: [phone] F: [phone] F: [phone] F: [phone] Physical Therapy Discharge Report Diagnosis: Labyrinthine dysfunction, B Date of Surgery: NA Date of Evaluation: 12/02/24 Date of Discharge: 01/09/25 Treatments to Date: 1 Cancellations to Date: 0 No Shows to Date: 0 Discharge Status: Discharge Summary: Stephani has had no symptoms of vestibular dysfunction in over a month. She is therefore being d/c from PT. Electronically signed by: Miguelina Haskins PT DPT Please sign and return to therapist. Thank you for your referral.
== END 2025-01-09 13:39 | disposition home or self-care (01) ==
LOC: HO.PT 07:54
PROVIDERS: PCP Internal Medicine; Visit Provider Internal Medicine
DX: H83.2X3 Labyrinthine dysfunction, bilateral (principal)
CPT/HCPCS: 97112; 97161

== ENCOUNTER 2025-05-05 10:34 | Emergency (ER) | payer OTHER, BC, SELFPAY ==
--- OUTSIDE RECORDS SUMMARY | 2023-11-09 03:15 | XMS_ITS ---
Author Organization Sourav Cobb MD Address [address] [place], [place] [id number] Care Team Providers Care Dye Maker Name Role Phone Sourav Cobb Primary Care Provider [phone] Results Component Value Reference Range Notes Complete Blood Count Auto Di ff Reviewed date:11/09/2023 12:47:44 PM Interpretation: Performing Lab:[facility], [address] [place] [phone] Notes/Report: White Blood Count 5.5 4.8-10.8 X10*3/uL Red Blood Count 4.54 4.20-5.50 X10*6/uL Hemoglobin 14.3 12.0-16.0 g/dl Hematocrit 41.8 37.0-47.0 % Mean Corpuscular Volume 92.1 80.0-98.0 fL Mean Corpuscular Hemoglobin 31.5 27.0-33.0 pg Mean Corpuscular HGB Conc 34.2 31.0-35.0 g/dl Red Cell Distribution Width 12.2 11.0-16.0 % Platelet Count 218 160-400 X10*3/uL Mean Platelet Volume 10.1 9.4-12.3 fL Neutrophils Percent Auto 49.1 45-73 % Imm Gran Pct Auto 0.2 0.0-0.4 % Lymphocytes Percent Auto 38.7 20-40 % Monocytes Percent Auto 7.8 2-11 % Eosinophils Percent Auto 3.8 0-4 % Basophils Percent Auto 0.4 0-2 % NRBC Pct Auto 0.0 0.0-0.2 /100WBC Neutrophils Absolute Auto 2.7 2.0-8.3 x10*3/u L Imm Gran Abs Auto 0.01 0.00-0.03 X10*3/uL Lymphocytes Absolute Auto 2.1 1.2-4.9 X10*3/u L Monocytes Absolute Auto 0.4 0.1-1.2 X10*3/uL Eosinophils Absolute Auto 0.2 0.0-0.4 X10*3/u L Basophils Absolute Auto 0.0 0.0-0.2 X10*3/uL NRBC Abs Auto 0.000 0.0-0.012 X10*3/uL Comprehensive [place]. Panel Fa Reviewed date:11/09/2023 12:52:13 PM Interpretation: Performing Lab:[address] [phone] Notes/Report: Sodium 140 135-145 mmol/L Potassium 3.9 3.3-5.1 mmol/L Chloride 103 96-108 mmol/L Carbon Dioxide 29 22-29 mmol/L Anion Gap 12 12-20 Blood Urea Nitrogen 11 9-16 mg/dL Creatinine 0.81 0.5-1.4 mg/dL Estimated Glomerular Filt Rate > 60 NOTE: For -[place] individuals, multiply the result by 1.210. Chronic Kidney Disease: Estimated GFR < 60 mL/min/1.73m2 Severe Kidney Disease: Estimated GFR < 15 mL/min/1.73m2 Glucose Fasting 87 60-99 mg/dL Calcium 9.5 8.4-10.2 mg/dL Bilirubin Total 0.5 0.0-1.0 mg/dL Aspartate Amino Transferase 21 5-31 U/L Alanine Aminotransferase 22 0-31 U/L Total Protein 7.6 6.5-8.0 g/dL Albumin Level 4.4 3.5-5.0 g/dL Alkaline Phosphatase 56 39-117 U/L Lipid Panel Reviewed date:11/09/2023 12:46:47 PM Interpretation: Performing Lab:[facility], [address] [place] [phone] Notes/Report: Triglycerides 117 <150 mg/dL Desirable Triglyceride: less than 150 mg/dL Borderline High Triglyceride 150-199 mg/dL High Triglyceride: 200-499 mg/dL Very High Triglyceride: greater than or equal to 5OO mg/dL Cholesterol 196 <200 mg/dL Desirable Cholesterol: less than 200 mg/dL Borderline High Cholesterol: 200-239 mg/dL High Cholesterol: greater than 239 mg/dL LDL Cholesterol Calculated 114 <100 mg/dL Desirable LDL: less than 100 mg/dL Near Optimal/Above Optimal LDL: 110-129 mg/dL Borderline High LDL: 130-159 mg/dL High LDL: 160-189 mg/dL Very High LDL: greater than or equal to 190 mg/dL HDL Cholesterol 59 >40 mg/dL Desirable HDL: greater than 40 mg/dL Note: This HDL assay may give artificially low results in patients with liver disease. UA ClnCatch+Micro w/rflx Cul t Reviewed date:11/10/2023 12:36:16 PM Interpretation: Performing Lab:[facility], [address] [place] [phone] Notes/Report: Urine, Clean Catch Color Urine Yellow Appearance Urine Clear PH 7.0 5.0-9.0 Glucose Urine UA Negative Negative mg/dL Urine Blood Negative Negative Specific [place] - Urine 1.025 1.005-1.025 Urine Protein Negative Neg-Trace mg/dL Urine Ketones Negative Negative mg/dL Nitrite Urine Negative Negative Leukocyte Esterase Urine Trace Negative RBC Urine 0-2 0-2 /HPF WBC Urine 0-5 0-5 /HPF Squamous Epithelial Cell Urine 3-5 0-2 /HPF Bacteria Urine 1+ None Seen Hyaline Casts Urine 0-2 0-2 /LPF REASON FOR VISIT FASTING LABS Encounters Encounter Location Date Provider Diagnosis Souarv Cobb MD [address] [place] [address] Drive [address] [place] [phone] 11/09/2023 Soruav Cobb Blood tests for routine general physical examination Z00.00 Assessments Encounter Date Diagnosis (ICD Code) Assessment Notes Treatment Notes Treatment Clinical Notes Section Notes 11/09/2023 Blood tests for routine general physical examination (ICD-10 - Z00.00) Plan Of Treatment Next Appt Details Provider Name:Sourav camarena, 06/06/2025 08:30:00 AM, [address] [place] [address] Drive, [address], [place], [place], [phone], Provider Name:Sourav Chiu ier, 10/26/2025 07:00:00 AM, [address], [address], [place], [place], [phone], Provider Name:Sourav Chiu ier, 11/02/2025 08:30:00 AM, [address], [address], [place], [phone], Progress Notes * Stephani CHAMBERS ADOB:1990 (34 yo F)Acc No.[id number]:11/09/2023 Progress Note Patient: Stephani SÁNCHEZ Provider: Gaudencio Cobb MD :1990 A ge:32 Y S ex:Female Date:11/09/2023 Address:[address] [place], [place] [phone] Subjective: * Chief Complaints: * 1 . FASTING LABS. * Medical History: Objective: * Vitals: Assessment: * Assessment: 1. B lood tests for routine general physical examination - Z00.00 (Primary) Plan: * Treatment: * Procedure Codes: 3 6415 VENIPUNCT, ROUTINE* * * The named appointment provid er may or may not be the originator of this progress note, and it is not deemed complete until electronically signed by the appointment provider. Sign off status: Pending * Provider: Gaudencio Cobb MD Date: 0 11/09/2023 Generated for Stewart garcia/Criss/eTransmitting on: 1 01:53 PM EDT
--- OUTSIDE RECORDS SUMMARY | 2023-11-16 04:30 | XMS_ITS ---
Author Organization Sourav Cobb MD Address [address] [place], [place] [id number] Care Team Providers Care Butter Grader Name Role Phone Sourav Cobb Primary Care Provider Allergies Allergen (clinical drug ingredient) Drug/Non Drug Allergy documented on EMR Reaction Allergy Type Onset Date Status ciprofloxacin Cipro rash Drug Allergy Act emmett REASON FOR VISIT ANNUAL EXAM, No Covid symptoms, Rash around eyes since August, check left and right axilla, has weekly coughing fits and tastes blood Medications Medication SIG (Take, Route, Frequency, Duration) Notes Start Date End Date Status Ventolin HFA * 0 2 puffs as needed Inhalation every 4 hrs for 17 Not-Taking Ambien 5 MG 1 tablet at bedtime Orally Once a day for 30 days 06/20/2016 Not-Taking Advair Diskus 250-50 MCG/ACT 1 puff Inhalation Twice a day for 30 days 11/16/2023 Active Lexapro 10 MG 1 tablet Orally Once a day for 30 Not-Taking Sertraline HCl 100 MG take one tablet by mouth every day Orally Once a day for 30 days Active Albuterol Sulfate HFA 108 (90 Base) MCG/ACT 1 puff as needed Inhalation every 4 hrs for 30 days 06/23/2023 Active Mirena (52 MG) 20 MCG/24HR Intrauterine Active Tylenol Extra Strength 500 MG 1 tablet as needed Orally every 6 hrs Not-Taking Social History Tobacco Use: Social History Observation Description Date Details (start date - stop date) Never Smoker NA - NA Tobacco Use/Smoking Question Answer Notes Patient is a nonsmoker Additional Findings: Tobacco Non-User Cu rrent non-smoker, currently using no form of tobacco Alcohol Screen Question Answer Notes Did you have a drink contain ing alcohol in the past year? Yes How often did you have a dri nk containing alcohol in the past year? 2 to 4 times a month (2 points) How many drinks did you have on a typical day when you were drinking in the past year? 1 or 2 drinks (0 point) How often did you have 6 or more drinks on one occasion in the past year? Never (0 point) Points 2 Interpretation Negative Problems Problem Type SNOMED Code ICD Code Onset Dates Problem Status W/U Status Risk Notes Problem 233910306 Active asthma (J45.909) Active confirmed Vital Signs Blood pressure systolic 104 mm Hg 11/16/19 24 Blood pressure diastolic 60 mm Hg 024 Height 64.25 in 11/16/2023 Weight 146 lbs 11/16/2023 BMI 24.86 kg/m2 11/16/2023 weight is up 11 pounds since 07-31-23 Encounters Encounter Location Date Provider Diagnosis Sourav Cobb MD [address] [place] [address] [address] [place], [place] [phone] 11/16/2023 Sourav Cobb Skin rash R21 ; Annual physical exam Z00.00 ; Axillary adenitis I88.9 ; Active asthma J45.909 ; Dysthymia F34.1 and Depression screening Z13.31 Assessments Encounter Date Diagnosis (ICD Code) Assessment Notes Treatment Notes Treatment Clinical Notes Section Notes 11/16/2023 Skin rash (ICD-10 - R21) [place]. ALL INFO REGARDING MUTUAL DERM WAS GIVEN TO ADA 11/16/2023 Annual physical exam (ICD-10 - Z00.00) labs reviewed and discussed with patient 11/16/2023 Axillary adenitis (ICD-10 - I88.9) THE US ORDER WAS FAXED TO [facility] CENTRALIZED FOR SCHEDULING , PATIENT AWARE, pending diagnostic testing 11/16/2023 Active asthma (ICD-10 - J45.909) patient verbalized understanding of medications and directions for use 11/16/2023 Dysthymia (ICD-10 - F34.1) patient verbalized understanding od increase in medication, will continue to monitor 11/16/2023 Depression screening (ICD-10 - Z13.31) Plan Of Treatment Medication Medication Name Sig Start Date Stop Date Notes Advair Diskus 250-50 MCG/ACT 1 puff Inha lation Twice a day for 30 days 11/16/2023 Sertraline HCl 100 MG take one tablet by mouth every day Orally Once a day for 30 days Treatment Notes Assessment Notes Skin rash referral [place] . ALL INFO REGARDING MUTUAL DERM WAS GIVEN TO ADA Annual physical exam labs reviewed and d iscussed with patient Axillary adenitis THE US ORDER WAS FAX ED TO [facility] CENTR[facility]IZED FOR SCHEDULING , PATIENT AWARE, pending diagnostic testing Active asthma patient verbalized u nderstanding of medications and directions for use Dysthymia patient verbalized u nderstanding od increase in medication, will continue to monitor Pending Test Test Name Order Date US SOFT TISSUE 11/16/2023 Next Appt Details Follow Up: 4 Weeks, Reason: Provider Name:Sourav camarena, 06/06/2025 08:30:00 AM, [address] [place] [address], [address], [phone], Provider Name:Sourav camarena, 10/26/2025 07:00:00 AM, [address] [place] [address], [place] [address], [place], [place], [phone], Provider Name:Sourav camarena, 11/02/2025 08:30:00 AM, [address] [place] [address], [address], [phone], Progress Notes * Ada CHAMBERS ADOB:1990 (32 yo F)Acc No.[id number]:11/16/2023 Progress Notes Patient: Ada Whitlock Provider: Gaudencio Cobb MD :1990 A ge:32 Y S ex:Female Date:11/16/2023 Address:[address] [place], [place] [phone] Subjective: * Chief Complaints: * A NNUAL EXAMNo Covid symptomsRash around eyes since AugustCheck left and right axillaHas weekly coughing fits and tastes blood * HPI: D epression Screening: PHQ-9 L ittle interest or pleasure in doing things M ore than half the days, F eeling down, depressed, or hopeless M ore than half the days, T rouble falling or staying asleep, or sleeping too much M ore than half the days, F eeling tired or having little energy M ore than half the days, P oor appetite or overeating N ot at all, F eeling bad about yourself or that you are a failure, or have let yourself or your family down S everal days, T rouble concentrating on things, such as reading the newspaper or watching television M ore than half the days, M oving or speaking so slowly that other people could have noticed; or the opposite, being so fidgety or restless that you have been moving around a lot more than usual M ore than half the days, T houghts that you would be better off or of hurting yourself in some way N ot at all, T otal Score 1 3, I nterpretation M oderate Depression. I nterpretation and Intervention D epression Screening Findings P ositve - Review of PHQ-9 found positive for depression, F ollow-Up for Depression : Existing condition. C ommunication Needs: Communication Needs D oes the patient have a hearing impairment N o, D oes the patient have a vision impairment? Y es, I f yes, what is the vision impairment? C ontact Lenses, D oes the patient have a cognition impairment? N o. S AUGUSTINE Questions: SDOH Questions I n the past year have you been worried about losing housing? N o, I n the past year have you or any family members you live with been unable to get any of the following when it was really needed? Check all that apply: N one. S ymptom(s): patient is a 32 yo female here for annual visit with review of recent labs and follow up of chronic issues, has a rash around eyes since aug. has cough once a week/ has a new lump in rt axilla that is not sore. has one in left. * ROS: G eneral/Constitutional: Patient denies f atigue , headache. C hange in appetite?denies. C hills d enies. F ever d enies. O phthalmologic: Blurred vision d enies. D ischarge d enies. P ain d enies. E NT: Patient denies d ecreased sense of smell , any loss of taste , sore throat. D ecreased hearing d enies. S ore throat d enies. S wollen glands d enies. E ndocrine: Cold intolerance d enies. E xcessive thirst d enies. H eat intolerance d enies. W eight loss d enies. R espiratory: Cough d enies. S hortness of breath at rest d enies. S hortness of breath with exertion d enies. W heezing d enies. C ardiovascular: Chest pain at rest d enies. C hest pain with exertion?denies. I rregular heartbeat d enies. S hortness of breath d enies. ? G astrointestinal: Abdominal pain d enies. C hange in bowel habits d enies. D iarrhea d enies. N ausea d enies. R ectal bleeding d enies. V omiting d enies . G enitourinary: Blood in urine d enies. D ifficulty urinating d enies. F requent urination d enies. U rinary incontinence D enies. M usculoskeletal: Patient denies m uscle aches. P ainful joints d enies. W eakness d enies. P eripheral Vascular: Patient denies r ed and blue toes. S kin: Dry skin d enies. I tching d enies. D enies?Mole(s), changes in moles, new moles or any lesions of concern. D enies P hotosensitivity. R beth d enies. N eurologic: Dizziness d enies. F ainting d enies. H eadache?denies. * Medical History: * Surgical History: * Hospitalization/Major Diagno stic Procedure: * Family History: F ather: alive 63 yrs. M other: alive 62 yrs. M aternal Grand Mother: , diabetes. 1 brother(s) , 1 sister(s) . 1 daughter(s) . . Father-Healthy Parkinson's Mother-Healthy, Denies mental health/substance abuse family history, Denies mental health/substance abuse family history. * Social History: T obacco Use: T obacco Use/Smoking P atient is a n onsmoker, A dditional Findings: Tobacco Non-User C urrent non-smoker, currently using no form of tobacco. D rugs/Alcohol: A lcohol Screen D id you have a drink containing alcohol in the past year? Y es, H ow often did you have a drink containing alcohol in the past year? 2 to 4 times a month (2 points), H ow many drinks did you have on a typical day when you were drinking in the past year? 1 or 2 drinks (0 point), H ow often did you have 6 or more drinks on one occasion in the past year? N ever (0 point), P oints 2 , I nterpretation N egative. M iscellaneous: C affeine: yes, frequency:, 1-2 cups per day. Children: yes. 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 Exercise: yes, walking and stretching. Housing: renting with her daughter. Living with: daughter. Marital status: single. Occupation: works full-time. Pets: none. no Travel outside of the [place]. * Medications: T akingMirena (52 MG) 20 MCG/24HR Intrauterine Device Intrauterine Sertraline HCl 50 MG Tablet TAKE ONE TABLET BY MOUTH EVERY DAY Albuterol Sulfate HFA 108 (90 Base) MCG/ACT Aerosol Solution 1 puff as needed Inhalation every 4 hrsTaking Mirena (52 MG) 20 MCG/24HR Intrauterine Device Intrauterine Taking Sertraline HCl 50 MG Tablet TAKE ONE TABLET BY MOUTH EVERY DAY Taking Albuterol Sulfate HFA 108 (90 Base) MCG/ACT Aerosol Solution 1 puff as needed Inhalation every 4 hrsNot-Taking/PRNTylenol Extra Strength 500 MG Tablet 1 tablet as needed Orally every 6 hrsLexapro 10 MG Tablet 1 tablet Orally Once a dayAmbien 5 MG Tablet 1 tablet at bedtime Orally Once a dayVentolin HFA * 0 Aerosol Solution 2 puffs as needed Inhalation every 4 hrsNot-Taking/PRN Tylenol Extra Strength 500 MG Tablet 1 tablet as needed Orally every 6 hrsNot-Taking/PRN Lexapro 10 MG Tablet 1 tablet Orally Once a dayNot-Taking/PRN Ambien 5 MG Tablet 1 tablet at bedtime Orally Once a dayNot-Taking/PRN Ventolin HFA * 0 Aerosol Solution 2 puffs as needed Inhalation every 4 hrsDiscontinuedguaiFENesin-Codeine 100-10 MG/5ML Solution 10 ml as needed Orally every 4 hrspredniSONE 10 MG Tablet 1 tablet with food or milk Orally 4 tabs for 3 days,3tabs for 3 days, 2 tabs for 3 days, and 1 tab for 3 daysMedication List reviewed and reconciled with the patientDiscontinued guaiFENesin-Codeine 100-10 MG/5ML Solution 10 ml as needed Orally every 4 hrsDiscontinued predniSONE 10 MG Tablet 1 tablet with food or milk Orally 4 tabs for 3 days,3tabs for 3 days, 2 tabs for 3 days, and 1 tab for 3 daysMedication List reviewed and reconciled with the patient * Allergies: C ipro: rashyes[Allergies Verified] Objective: * Vitals: H t: 64.25, Wt:146, BMI:24.86, BP:104/60 weight is up 11 pounds since 07-31-23. * P ast Orders: L ab:Lipid Panel (Order Date - 11/09/2023) (Collection Date - 11/09/2023) Value Reference Range Triglycerides 117 <150 - mg/dL Cholesterol 196 <200 - mg/dL LDL Cholesterol Calculated 114 H <100 - mg/dL HDL Cholesterol 59 >40 - mg/dL L ab:Complete Blood Count Auto Diff (Order Date - 11/09/2023) (Collection Date - 11/09/2023) Value Reference Range White Blood Count 5.5 4.8-10.8 - X10*3/uL Red Blood Count 4.54 4.20-5.50 - X10*6/uL Hemoglobin 14.3 12.0-16.0 - g/dl Hematocrit 41.8 37.0-47.0 - % Mean Corpuscular Volume 92.1 80.0-98.0 - fL Mean Corpuscular Hemoglobin 31.5 27.0-33.0 - pg Mean Corpuscular HGB Conc 34.2 31.0-35.0 - g/ dl Red Cell Distribution Width 12.2 11.0-16.0 - % Platelet Count 218 160-400 - X10*3/uL Mean Platelet Volume 10.1 9.4-12.3 - fL Neutrophils Percent Auto 49.1 45-73 - % Imm Gran Pct Auto 0.2 0.0-0.4 - % Lymphocytes Percent Auto 38.7 20-40 - % Monocytes Percent Auto 7.8 2-11 - % Eosinophils Percent Auto 3.8 0-4 - % Basophils Percent Auto 0.4 0-2 - % NRBC Pct Auto 0.0 0.0-0.2 - /100WBC Neutrophils Absolute Auto 2.7 2.0-8.3 - x10* 3/uL Imm Gran Abs Auto 0.01 0.00-0.03 - X10*3/uL Lymphocytes Absolute Auto 2.1 1.2-4.9 - X10* 3/uL Monocytes Absolute Auto 0.4 0.1-1.2 - X10*3/ uL Eosinophils Absolute Auto 0.2 0.0-0.4 - X10* 3/uL Basophils Absolute Auto 0.0 0.0-0.2 - X10*3/ uL NRBC Abs Auto 0.000 0.0-0.012 - X10*3/uL L ab:Comprehensive [facility]. Panel Fast (Order Date - 11/09/2023) (Collection Date - 11/09/2023) Value Reference Range Sodium 140 135-145 - mmol/L Bilirubin Total 0.5 0.0-1.0 - mg/dL Aspartate Amino Transferase 21 5-31 - U/L Alanine Aminotransferase 22 0-31 - U/L Total Protein 7.6 6.5-8.0 - g/dL Albumin Level 4.4 3.5-5.0 - g/dL Alkaline Phosphatase 56 39-117 - U/L Potassium 3.9 3.3-5.1 - mmol/L Chloride 103 96-108 - mmol/L Carbon Dioxide 29 22-29 - mmol/L Anion Gap 12 12-20 - Blood Urea Nitrogen 11 9-16 - mg/dL Creatinine 0.81 0.5-1.4 - mg/dL Estimated Glomerular Filt Rate > 60 - Glucose Fasting 87 60-99 - mg/dL Calcium 9.5 8.4-10.2 - mg/dL * Examination: G eneral Examination: GENERAL APPEARANCE: w ell developed, well nourished, in no acute distress. HEAD: n ormocephalic, atraumatic. EYES: p upils equal, round, reactive to light and accommodation, sclera non-icteric/ with a flat erythema around both eyes. EARS: n ormal. ORAL CAVITY: m ucosa moist. THROAT: c lear. NECK/THYROID: n haris supple, full range of motion, no cervical lymphadenopathy, no bruits. SKIN: w arm and dry, no suspicious lesions, abnormal with rash around eyes, abnormal in rt axilla is a 1 inch firm nodule and a smaller one in lft axilla. HEART: r egular rate and rhythm, S1, S2 normal, no murmurs.? LUNGS: c lear to auscultation bilaterally. BREASTS: n ot done. ABDOMEN: s oft, nontender, nondistended, bowel sounds present, normal, no organomegaly , no masses palpable. RECTAL EXAM: d one by informatics specialist. FEMALE GENITOURINARY: d one by informatics specialist. EXTREMITIES: n o clubbing, cyanosis, or edema. NEUROLOGIC: n onfocal, motor strength normal upper and lower extremities, sensory exam intact. Assessment: * Assessment: 1. A nnual physical exam - Z00.00 (Primary) 2 . S kin rash - R21 3 . A xillary adenitis - I88.9 4 . A ctive asthma - J45.909 5 . D ysthymia - F34.1 6 . D epression screening - Z13.31 Plan: * Treatment: 2. S kin rash Notes: referral to [place]. ALL INFO REGARDING MUTUAL DERM WAS GIVEN TO ADA. 3. A xillary adenitis I maging: US SOFT TISSUE Notes: THE US ORDER WAS FAXED TO [facility] FOR SCHEDULING , PATIENT AWARE, pending diagnostic testing. 4. A ctive asthma Start Advair Diskus Aerosol Powder Breath Activated, 250-50 MCG/ACT, 1 puff, Inhalation, Twice a day, 30 days, 1, Refills 3. Notes: patient verbalized understanding of medications and directions for use. 5. D ysthymia Increase Sertraline HCl Tablet, 100 MG, take one tablet by mouth every day, Orally, Once a day, 30 days, 30, Refills 2. Notes: patient verbalized understanding od increase in medication, will continue to monitor. ? * Procedure Codes: * Follow Up: 4 Weeks * * Sign off status: Completed true * Provider: Gaudencio Cobb MD Date: 0 11/16/2023 Generated for Stewart garcia/Criss/Jona on: 1 01:53 PM EDT History and Physical Notes * HPI (History of Present Illness) Category Sub-Category Detail Notes Category Not es Symptom(s) patient is a 32 yo female here for annual visit with review of recent labs and follow up of chronic issues, has a rash around eyes since aug. has cough once a week/ has a new lump in rt axilla that is not sore. has one in left Depression Screening PHQ-9 Little inte rest or pleasure in doing things: More than half the days Feeling down, depressed, or hopeless: Mo re than half the days Trouble falling or staying a sleep, or sleeping too much: More than half the days Feeling tired or having little energy: M ore than half the days Poor appetite or overeating: Not at all Feeling bad about yourself o r that you are a failure, or have let yourself or your family down: Several days Trouble concentrating on thi ngs, such as reading the newspaper or watching television: More than half the days Moving or speaking so slowly that other people could have noticed; or the opposite, being so fidgety or restless that you have been moving around a lot more than usual: More than half the days Thoughts that you would be b sage off or of hurting yourself in some way: Not at all Total Score: 13 Interpretation: Moderate Depression Interpretation and Intervention Depressi on Screening Findings: Positve - Review of PHQ-9 found positive for depression Follow-Up for Depression: : Existing con dition SDOH Questions SDOH Questions In the past year have you been worried about losing housing?: No In the past year have you or any family members you live with been unable to get any of the following when it was really needed? Check all that apply:: None Communication Needs Communication Needs Does the patient have a hearing impairment: No Does the patient have a vision impairmen t?: Yes If yes, what is the vision impairment?: Contact Lenses Does the patient have a cognition impair ment?: No Examination Category Sub-Category Detail Notes Category Not es General Examination GENERAL APPEARANCE: well dev eloped, well nourished, in no acute distress HEAD: normocephalic, atrau matic EYES: pupils equal, round, reactive to light and accommodation, sclera non- icteric/ with a flat erythema around both eyes EARS: normal THROAT: clear NECK/THYROID: neck supple, full ra nge of motion, no cervical lymphadenopathy, no bruits HEART: regular rate and rhy thm, S1, S2 normal, no murmurs LUNGS: clear to auscultatio n bilaterally ABDOMEN: soft, nontender, non distended, bowel sounds present, normal, no organomegaly , no masses palpable NEUROLOGIC: nonfocal, motor stre ngth normal upper and lower extremities, sensory exam intact SKIN: warm and dry, no lennie picious lesions, abnormal with rash around eyes, abnormal in rt axilla is a 1 inch firm nodule and a smaller one in lft axilla EXTREMITIES: no clubbing, cyanosi s, or edema BREASTS: not done RECTAL EXAM: done by informatics specialist FEMALE GENITOURINARY: done by informatics specialist ORAL CAVITY: mucosa moist
--- OUTSIDE RECORDS SUMMARY | 2023-11-16 05:25 | XMS_ITS ---
Author Organization Sourav Cobb MD Address [address] [place] [address] [place] [phone] Care Team Providers Care Fermenter Name Role Phone Sourav Cobb Primary Care Provider REASON FOR VISIT US SOFT TISSUE Encounters Encounter Location Date Provider Diagnosis Sourav Cobb MD [address] [place] [address] [place] [phone] 11/16/2023 Sourav Cobb Plan Of Treatment Next Appt Details Provider Name:Sourav camarena, 06/06/2025 08:30:00 AM, [address] [place] [address], [address], [phone], Provider Name:Sourav camarena, 10/26/2025 07:00:00 AM, [address] [place] [address], [address], [phone], Provider Name:Soruav Chiu ier, 11/02/2025 08:30:00 AM, [address] [place] [address], [address], [phone], Progress Notes * Stephani CHAMBERS ADOB:1990 (32 yo F)Acc No.[id number]:11/16/2023 Patient: Stephani Whitlock :1990 A ge:32 Y S ex:Female Address:[address] [place] [address], [phone] * true * Date: Generated for Stewart garcia/Criss/Jona on: 01:53 PM EDT
--- OUTSIDE RECORDS SUMMARY | 2023-12-17 03:30 | XMS_ITS ---
Author Organization Sourav Cobb MD Address [address] [place], [place] [id number] Care Team Providers Care Night Custodian Name Role Phone Sourav Cobb Primary Care Provider Allergies Allergen (clinical drug ingredient) Drug/Non Drug Allergy documented on EMR Reaction Allergy Type Onset Date Status ciprofloxacin Cipro rash Drug Allergy Act emmett REASON FOR VISIT 4 WEEK F/U, Video [phone] Medications Medication SIG (Take, Route, Frequency, Duration) Notes Start Date End Date Status Ambien 5 MG 1 tablet at bedtime Orally Once a day for 30 days 06/20/2016 Not-Taking Ventolin HFA * 0 2 puffs as needed Inhalation every 4 hrs for 17 Not-Taking Sertraline HCl 100 MG take one tablet by mouth every day Orally Once a day Active Tylenol Extra Strength 500 MG 1 tablet as needed Orally every 6 hrs Not-Taking Lexapro 10 MG 1 tablet Orally Once a day for 30 Not-Taking Albuterol Sulfate HFA 108 (90 Base) MCG/ACT 1 puff as needed Inhalation every 4 hrs 06/23/2023 Active Mirena (52 MG) 20 MCG/24HR Intrauterine Active Advair Diskus 250-50 MCG/ACT 1 puff Inhalation Twice a day 11/16/2023 Active Vital Signs Height 64.25 in 12/17/2023 weight is 146 BP not takenna t home Encounters Encounter Location Date Provider Diagnosis Sourav Cobb MD [address] [place], [place] [phone] 12/17/2023 Sourav Cobb Axillary adenitis I88.9 ; Active asthma J45.909 and Dysthymia F34.1 Assessments Encounter Date Diagnosis (ICD Code) Assessment Notes Treatment Notes Treatment Clinical Notes Section Notes 12/17/2023 Axillary adenitis (ICD-10 - I88.9) us was negative for anything dangerous. she states the tech did both axilla but they didn't read that. will need to speak to dr torres/ left messaGE for Dr. Torres to call 12/17/2023 Active asthma (ICD-10 - J45.909) doing well. no coughing and the blood taste is gone, will continue current regiment 12/17/2023 Dysthymia (ICD-10 - F34.1) feels well but doesn't know if she is in a different space, will continue current regiment Plan Of Treatment Medication Medication Name Sig Start Date Stop Date Notes Sertraline HCl 100 MG take one tablet by mouth every day Orally Once a day Albuterol Sulfate HFA 108 (9 0 Base) MCG/ACT 1 puff as needed Inhalation every 4 hrs 06/23/2023 Advair Diskus 250-50 MCG/ACT 1 puff Inhalation Twice a day 11/16/2023 Treatment Notes Assessment Notes Axillary adenitis us was negative for anything dangerous. she states the tech did both axilla but they didn't read that. will need to speak to dr torres/ left messaGE for Dr. Torres to call Active asthma doing well. no cough ing and the blood taste is gone, will continue current regiment Dysthymia feels well but doesn 't know if she is in a different space, will continue current regiment Next Appt Details Provider Name:Sourav camarena, 06/06/2025 08:30:00 AM, [address] [place] [address], [address] [facility], [place], [place], [phone], Provider Name:Sourav camarena, 10/26/2025 07:00:00 AM, [address] [place] [address], [address], [place], [place], [phone], Provider Name:Sourav camarena, 11/02/2025 08:30:00 AM, [address], [address], [place], [place], [phone], Progress Notes * Stephani CHAMBERS ADOB:1990 (33 yo F)Acc No.[id number]:12/17/2023 Patient: Stephani Whitlock Provider: Gaudencio Cobb MD :1990 A ge:33 Y S ex:Female Date:12/17/2023 Address:[address] [place], [place] [phone] Subjective: * Chief Complaints: * 4 WEEK F/UVideo [phone] * HPI: S ymptom(s): Telehealth L ocation of provider rendering services: [address], [address], L ocation of patient: a t address listed in demographics for today's visit, P atient identification confirmed using: N bonnie, , SSN, Insurance information, T elehealth method: V ideo conference where patient is visible to the provider of care, C onsent: P atient verbally consented to treatment, Patient verbally consented to billing insurance company, Patient informed of any privacy concerns related to method of visit. patient is a 33 yo female video telehealth visit here for 4 week follow up visit, lisette rodriguez. depression is doing better. previous therapist thought she may be bipolar. doesn't know if it is the meds. * ROS: G eneral/Constitutional: Patient denies c hills , fatigue , fever , headache. ? E NT: Patient denies d ecreased sense of smell , any loss of taste , sore throat. M usculoskeletal: Patient denies m uscle aches. P eripheral Vascular: Patient denies r ed and blue toes. P sychiatric: Denies A nxiety. D enies D epressed mood. D enies D ifficulty sleeping. * Medical History: * Surgical History: * Hospitalization/Major Diagno stic Procedure: * Medications: T akingMirena (52 MG) 20 MCG/24HR Intrauterine Device Intrauterine Albuterol Sulfate HFA 108 (90 Base) MCG/ACT Aerosol Solution 1 puff as needed Inhalation every 4 hrsAdvair Diskus 250-50 MCG/ACT Aerosol Powder Breath Activated 1 puff Inhalation Twice a daySertraline HCl 100 MG Tablet take one tablet by mouth every day Orally Once a dayTaking Mirena (52 MG) 20 MCG/24HR Intrauterine Device Intrauterine Taking Albuterol Sulfate HFA 108 (90 Base) MCG/ACT Aerosol Solution 1 puff as needed Inhalation every 4 hrsTaking Advair Diskus 250-50 MCG/ACT Aerosol Powder Breath Activated 1 puff Inhalation Twice a dayTaking Sertraline HCl 100 MG Tablet take one tablet by mouth every day Orally Once a dayNot-Taking/PRNTylenol Extra Strength 500 MG Tablet 1 tablet as needed Orally every 6 hrsLexapro 10 MG Tablet 1 tablet Orally Once a dayAmbien 5 MG Tablet 1 tablet at bedtime Orally Once a dayVentolin HFA * 0 Aerosol Solution 2 puffs as needed Inhalation every 4 hrsMedication List reviewed and reconciled with the patientNot-Taking/PRN Tylenol Extra Strength 500 MG Tablet 1 tablet as needed Orally every 6 hrsNot-Taking/PRN Lexapro 10 MG Tablet 1 tablet Orally Once a dayNot-Taking/PRN Ambien 5 MG Tablet 1 tablet at bedtime Orally Once a dayNot-Taking/PRN Ventolin HFA * 0 Aerosol Solution 2 puffs as needed Inhalation every 4 hrsMedication List reviewed and reconciled with the patient * Allergies: C ipro: lin[Allergies Verified] Objective: * Vitals: H t: 64.25 weight is 146 BP not takennat home. * Examination: G eneral Examination: GENERAL APPEARANCE: alert, well hydrated, in no distress . Assessment: * Assessment: 1. A xillary adenitis - I88.9 (Primary) 2 . A ctive asthma - J45.909 3 . D ysthymia - F34.1 Plan: * Treatment: 2. A ctive asthma Continue Albuterol Sulfate HFA Aerosol Solution, 108 (90 Base) MCG/ACT, 1 puff as needed, Inhalation, every 4 hrs; C ontinue Advair Diskus Aerosol Powder Breath Activated, 250-50 MCG/ACT, 1 puff, Inhalation, Twice a day. Notes: doing well. no coughing and the blood taste is gone, will continue current regiment. ? 3. D ysthymia Continue Sertraline HCl Tablet, 100 MG, take one tablet by mouth every day, Orally, Once a day.? Notes: feels well but doesn't know if she is in a different space, will continue current regiment.? * Procedure Codes: * * Sign off status: Completed true * Provider: Gaudencio Cobb MD Date: 0 12/17/2023 Generated for Stewart garcia/Criss/Jona on: 1 01:54 PM EDT History and Physical Notes * HPI (History of Present Illness) Category Sub-Category Detail Notes Category Not es Symptom(s) [facility] [address], [address] patient is a 33 yo female video telehealth visit here for 4 week follow up visit, lisette rodriguez. depression is doing better. previous therapist thought she may be bipolar. doesn't know if it is the [facility] Location of patient:: at address listed in demographics for today's visit Patient identification confirmed using:: Name, , SSN, Insurance information Telehealth method:: Video co nference where patient is visible to the provider of care Consent:: Patient verbally c onsented to treatment, Patient verbally consented to billing insurance company, Patient informed of any privacy concerns related to method of visit Examination Category Sub-Category Detail Notes Category Not es General Examination GENERAL APPEARANCE: alert, w ell hydrated, in no distress
--- OUTSIDE RECORDS SUMMARY | 2024-05-24 12:30 | XMS_ITS ---
Author Organization Sourav Cobb MD Address [address] [place] [phone] Care Team Providers Care Cereal Miller Name Role Phone Sourav Cobb Primary Care Provider [phone] Allergies Allergen (clinical drug ingredient) Drug/Non Drug Allergy documented on EMR Reaction Allergy Type Onset Date Status ciprofloxacin Cipro rash Drug Allergy Act emmett REASON FOR VISIT right wrist lump Encounters Encounter Location Date Provider Diagnosis Sourav Cobb MD [address] [facility] [address] [place] [phone] 05/24/2024 Sourav Cobb Plan Of Treatment Next Appt Details Provider Name:Sourav camarena, 06/06/2025 08:30:00 AM, [address] [place] [address], [address], [phone], Provider Name:Sourav camarena, 10/26/2025 07:00:00 AM, [address] [place] [address], [address], [phone], Provider Name:Sourav camarena, 11/02/2025 08:30:00 AM, [address] [place] [address], [address], [phone], Progress Notes * Stephani CHAMBERS ADOB:1990 (34 yo F)Acc No.[id number]:05/24/2024 Progress Notes Patient: D UPONT, Stephani A Provider: Gaudencio Cobb MD :1990 A ge:33 Y S ex:Female Date:05/24/2024 Address:[address] [place] [address] Arpita Medrano [id number] Subjective: * Chief Complaints: * 1 . Right wrist lump. * ROS: G eneral/Constitutional: Denies C hills. D enies F atigue. D enies F ever. D enies H eadache. E NT: Denies S ore throat. R espiratory: Denies C ough. D enies S hortness of breath at rest. D enies S hortness of breath with exertion. G astrointestinal: Denies D iarrhea. D enies N ausea. 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 * Allergies: C ipro: rash. Objective: * Vitals: Assessment: Plan: * Treatment: * * The named appointment provid er may or may not be the originator of this progress note, and it is not deemed complete until electronically signed by the appointment provider. Sign off status: Pending * Provider: Gaudencio Cobb MD Date: 07/24/2023 Generated for Stewart garcia/Criss/Jona on: 01:53 PM EDT
--- OUTSIDE RECORDS SUMMARY | 2024-06-06 09:27 | XMS_ITS ---
Author Organization Sourav Cobb MD Address 10 [facility] [address] [place] [phone] Care Team Providers Care Route Driver Name Role Phone Sourav Cobb Primary Care Provider [phone] REASON FOR VISIT referral to electrical instrument technician Encounters Encounter Location Date Provider Diagnosis Sourav Cobb MD [address] [place] [address] [place] [phone] 06/06/2024 Sourav Cobb Plan Of Treatment Next Appt Details Provider Name:Sourav camarena, 06/06/2025 08:30:00 AM, [address] [place] [address], [address], [phone], Provider Name:Sourav camarena, 10/26/2025 07:00:00 AM, [address] [place] [address], [phone], Provider Name:Sourav Chiu ier, 11/02/2025 08:30:00 AM, [address] [place] [address], [phone], Progress Notes * Stephani CHAMBERS ADOB:1990 (33 yo F)Acc No.[id number]:06/06/2024 Patient: Stephani Whitlock :1990 A ge:33 Y S ex:Female Address:[address] [place] [address], [id number] Subjective: * Chief Complaints: * R eferral to electrical instrument technician * Medical History: * Surgical History: * Hospitalization/Major Diagno stic Procedure: * Medications: Objective: Assessment: Plan: * Treatment: * Procedure Codes: * true * Date: Generated for Stewart garcia/Criss/eTtysmyvon on: 01:52 PM EDT
--- OUTSIDE RECORDS SUMMARY | 2024-11-11 03:30 | XMS_ITS ---
Author Organization Sourav Cobb MD Address [address] [place], [place] [phone] Care Team Providers Care [employer] Name Role Phone Sourav Cobb Primary Care Provider Results Component Value Reference Range Notes Complete Blood Count Auto Di ff Reviewed date:11/11/2024 03:37:09 PM Interpretation: Performing Lab:[facility], [address] [place] [phone] Notes/Report: White Blood Count 5.0 4.8-10.8 X10*3/uL Red Blood Count 4.28 4.20-5.50 X10*6/uL Hemoglobin 13.2 12.0-16.0 g/dl Hematocrit 39.1 37.0-47.0 % Mean Corpuscular Volume 91.4 80.0-98.0 fL Mean Corpuscular Hemoglobin 30.8 27.0-33.0 pg Mean Corpuscular HGB Conc 33.8 31.0-35.0 g/dl Red Cell Distribution Width 12.4 11.0-16.0 % Platelet Count 263 160-400 X10*3/uL Mean Platelet Volume 9.7 9.4-12.3 fL Neutrophils Percent Auto 59.1 45-73 % Imm Gran Pct Auto 0.0 0.0-0.4 % Lymphocytes Percent Auto 33.1 20-40 % Monocytes Percent Auto 5.4 2-11 % Eosinophils Percent Auto 1.8 0-4 % Basophils Percent Auto 0.6 0-2 % NRBC Pct Auto 0.0 0.0-0.2 /100WBC Neutrophils Absolute Auto 2.9 2.0-8.3 x10*3/u L Imm Gran Abs Auto 0.00 0.00-0.03 X10*3/uL Lymphocytes Absolute Auto 1.7 1.2-4.9 X10*3/u L Monocytes Absolute Auto 0.3 0.1-1.2 X10*3/uL Eosinophils Absolute Auto 0.1 0.0-0.4 X10*3/u L Basophils Absolute Auto 0.0 0.0-0.2 X10*3/uL NRBC Abs Auto 0.000 0.0-0.012 X10*3/uL Comprehensive [place]. Panel Fa st Reviewed date:11/11/2024 10:29:23 AM Interpretation: Performing Lab:[address] [phone] Notes/Report: Sodium 139 135-145 mmol/L Potassium 4.0 3.3-5.1 mmol/L Chloride 107 96-108 mmol/L Carbon Dioxide 27 22-29 mmol/L Anion Gap 9 12-20 Blood Urea Nitrogen 13 9-16 mg/dL Creatinine 0.68 0.5-1.4 mg/dL Estimated Glomerular Filt Rate > 60 Chronic Kidney Disease: Estimated GFR < 60 mL/min/1.73m2 Severe Kidney Disease: Estimated GFR < 15 mL/min/1.73m2 Glucose Fasting 93 60-99 mg/dL Calcium 9.1 8.4-10.2 mg/dL Bilirubin Total 0.8 0.0-1.0 mg/dL Aspartate Amino Transferase 28 5-31 U/L Alanine Aminotransferase 22 0-31 U/L Total Protein 7.0 6.5-8.0 g/dL Albumin Level 4.2 3.5-5.0 g/dL Alkaline Phosphatase 63 39-117 U/L Lipid Panel Reviewed date:11/11/2024 10:25:56 AM Interpretation: Performing Lab:[facility], [address] [place] [phone] Notes/Report: Triglycerides 74 <150 mg/dL Desirable Triglyceride: less than 150 mg/dL Borderline High Triglyceride 150-199 mg/dL High Triglyceride: 200-499 mg/dL Very High Triglyceride: greater than or equal to 5OO mg/dL Cholesterol 191 <200 mg/dL Desirable Cholesterol: less than 200 mg/dL Borderline High Cholesterol: 200-239 mg/dL High Cholesterol: greater than 239 mg/dL LDL Cholesterol Calculated 113 <100 mg/dL Desirable LDL: less than 100 mg/dL Near Optimal/Above Optimal LDL: 110-129 mg/dL Borderline High LDL: 130-159 mg/dL High LDL: 160-189 mg/dL Very High LDL: greater than or equal to 190 mg/dL HDL Cholesterol 64 >40 mg/dL Desirable HDL: greater than 40 mg/dL Note: This HDL assay may give artificially low results in patients with liver disease. REASON FOR VISIT FASTING LABS Encounters Encounter Location Date Provider Diagnosis Sourav Cobb MD [address] [place] [phone] 11/11/2024 Sourav Cobb Blood tests for routine general physical examination Z00.00 Assessments Encounter Date Diagnosis (ICD Code) Assessment Notes Treatment Notes Treatment Clinical Notes Section Notes 11/11/2024 Blood tests for routine general physical examination (ICD-10 - Z00.00) Plan Of Treatment Pending Test Test Name Order Date UA ClnCatch+Micro w/rflx Cult 11/11/2024 Next Appt Details Provider Name:Sourav camarena, 06/06/2025 08:30:00 AM, [address] [place] [address], [phone], Provider Name:Sourav camarena, 10/26/2025 07:00:00 AM, [address] [place] [address], [phone], Provider Name:Sourav Chiu ier, 11/02/2025 08:30:00 AM, [address] [place] [address], [phone], Progress Notes * NANStephani ADOB:1990 (34 yo F)Acc No.[id number]:11/11/2024 Progress Note Patient: Stephani SÁNCHEZ Provider: Gaudencio Cobb MD :1990 A ge:33 Y S ex:Female Date:11/11/2024 Address:[address] [place] [address] Arpita Medrano [id number] Subjective: * Chief Complaints: * 1 . [...] * Provider: Gaudencio Cobb MD Date: 0 11/11/2024 Generated for Stewart garcia/Criss/Babatundeitting on: 01:53 PM EDT
--- OUTSIDE RECORDS SUMMARY | 2024-11-18 04:30 | XMS_ITS ---
Author Organization Sourav Cobb MD Address [address] [place], [place] [id number] Care Team Providers Care Tunnel Kiln Firer Name Role Phone Sourav Cobb Primary Care Provider Allergies Allergen (clinical drug ingredient) Drug/Non Drug Allergy documented on EMR Reaction Allergy Type Onset Date Status ciprofloxacin Cipro rash Drug Allergy Act emmett Results Component Value Reference Range Notes TSH reflex Free T4 Reviewed date:11/18/2024 05:02:23 PM Interpretation: Performing Lab:[facility], [address] [place] [id number] Notes/Report: TSH reflex Free T4 1.52 0.32-4.0 uIU/mL UA ClnCatch+Micro w/rflx Cul t Reviewed date:11/20/2024 03:41:27 PM Interpretation: Performing Lab:[address] [id number] Notes/Report: Urine, Clean Catch Color Urine Yellow Appearance Urine Cloudy PH 6.5 5.0-9.0 Glucose Urine UA Negative Negative mg/dL Urine Blood Negative Negative Specific Eugene - Urine 1.020 1.005-1.025 Urine Protein Negative Neg-Trace mg/dL Urine Ketones Negative Negative mg/dL Nitrite Urine Negative Negative Leukocyte Esterase Urine Negative Negative RBC Urine 0-2 0-2 /HPF WBC Urine 0-5 0-5 /HPF Squamous Epithelial Cell Urine 0-2 0-2 /HPF Bacteria Urine Trace None Seen Hyaline Casts Urine 0-2 0-2 /LPF Reason For Referral Reason Labyrinthine dysfunc tion bilateral please eval and treat for labyrinth therapy Diagnosis 1 Labyrinthine dysfunc tion, 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) Referral Organization Soruav Cobb MD Referring Provider First Name Sourav Referring Provider Last Name Reza Referring Provider Speciality Internal M edicine Referred Provider [facility] [place] Referred Provider Specialty Physical The rapist General Notes Tamika Linda 0 11/18/2024 08:57:13 AM > patient will be making her own appt/ referral info faxed, Tamika Linda 11/25/2024 11:31:00 AM > patient is aware of appt Referral Priority Routine Referral Appointment Date 12/02/2024 REASON FOR VISIT ANNUAL EXAM Medications Medication SIG (Take, Route, Frequency, Duration) Notes Start Date End Date Status Tylenol Extra Strength 500 MG 1 tablet as needed Orally every 6 hrs Not-Taking Sertraline HCl 100 MG TAKE ONE TABLET BY MOUTH EVERY DAY for 30 Active Ambien 5 MG 1 tablet at bedtime Orally Once a day for 30 days 06/20/2016 Not-Taking Lexapro 10 MG 1 tablet Orally Once a day for 30 Not-Taking Ventolin HFA * 0 2 puffs as needed Inhalation every 4 hrs for 17 Not-Taking Albuterol Sulfate HFA 108 (90 Base) MCG/ACT 1 puff as needed Inhalation every 4 hrs 06/23/2023 Active Mirena (52 MG) 20 MCG/24HR Intrauterine Active Advair Diskus 250-50 MCG/ACT 1 puff Inhalation Twice a day 11/16/2023 Active Social History Tobacco Use: Social History Observation [...] Problem Status W/U Status Risk Notes Problem Labyrinthine dysfunction (5011675) Labyrinthine dysfunction, 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) Active confirmed Vital Signs Blood pressure systolic 104 mm Hg 11/19/19 25 Blood pressure diastolic 62 mm Hg 025 Height 64.25 in 11/18/2024 Weight 143 lbs 11/18/2024 BMI 24.35 kg/m2 11/18/2024 weight is down 3 pounds [facility] e 11-16-23 Encounters Encounter Location Date Provider Diagnosis Sourav Cobb MD [address] [place], [place] [id number] 11/18/2024 Sourav Cobb Annual physical exam Z00.00 ; Labyrinthine dysfunction, bilateral H83.2X3 ; Lethargy R53.83 ; Anxiety F41.9 and Depression screening Z13.31 Assessments Encounter Date Diagnosis (ICD Code) Assessment Notes Treatment Notes Treatment Clinical Notes Section Notes 11/18/2024 Annual physical exam (ICD-10 - Z00.00) labs reviewed and discussed with patient, pending labs 11/18/2024 Labyrinthine dysfunction, bilateral (ICD-10 - H83.2X3) refer to physical therap for labyrinth therapy 11/18/2024 Lethargy (ICD-10 - R53.83) pending labs, will continue to monitor 11/18/2024 Anxiety (ICD-10 - F41.9) stable, will continue current regiment 11/18/2024 Depression screening (ICD-10 - Z13.31) negative screen Plan Of Treatment Treatment Notes Assessment Notes Annual physical exam labs reviewed and d iscussed with patient, pending labs Labyrinthine dysfunction, bilateral refe r to physical therap for labyrinth therapy Lethargy pending labs, will c ontinue to monitor Anxiety stable, will continu e current regiment Depression screening negative screen Referrals Referral Date Details 11/18/2024 11/18/2024, Labyrint les dysfunction bilateral please eval and treat for labyrinth therapy, P.T. [facility] Next Appt Details Follow Up: 6 Months, Reason: Provider Name:Sourav camarena, 06/06/2025 08:30:00 AM, [address], [address], [place], [phone], Provider Name:Sourav Chiu raqueljad, 10/26/2025 07:00:00 AM, [address], [address], [place], [phone], Provider Name:Sourav Chiu raquelr, 11/02/2025 08:30:00 AM, [address], [address], [place], [phone], Progress Notes * Stephani CHAMBERS ADOB:1990 (33 yo F)Acc No.[id number]:11/18/2024 Progress Notes Patient: Stephani SÁNCHEZ Provider: Gaudencio Cobb MD :1990 A ge:33 Y S ex:Female Date:11/18/2024 Address:[address] [place] [address] [id number] Subjective: * Chief Complaints: * A NNUAL EXAM * HPI: D epression Screening: PHQ-9 L ittle interest or pleasure in doing things N ot at all, F eeling down, depressed, or hopeless N ot at all, T rouble falling or staying asleep, or sleeping too much N ot at all, F eeling tired or having little energy N ot at all, P oor appetite or overeating N ot at all, F eeling bad about yourself or that you are a failure, or have let yourself or your family down N ot at all, T rouble concentrating on things, such as reading the newspaper or watching television N ot at all, M oving or speaking so slowly that other people could have noticed; or the opposite, being so fidgety or restless that you have been moving around a lot more than usual N ot at all, T houghts that you would be better off or of hurting yourself in some way N ot at all, T otal Score 0 . I nterpretation and Intervention D epression Screening Findings N egative, F ollow-Up for Depression : review of PHQ-9 found negative result, no follow-up needed. gets light headed for a couple seconds at time. today. C ommunication Needs: Communication Needs D oes [...] N one. S ymptom(s): patient is a 33 yo female here for annul visit with review of recent labs and follow up of chronic issue. * ROS: G eneral/Constitutional: Change in appetite d enies. C hills d enies. F ever d enies. O phthalmologic: Blurred vision d enies. D ischarge d enies. P ain d enies. E NT: Decreased hearing d enies. S ore throat d enies.?Swollen glands d enies. E ndocrine: Cold intolerance [...] rinary incontinence D enies. M usculoskeletal: Patient complaining of l umps in both axilla. P ainful joints d enies. W eakness d enies. S kin: Dry skin d enies. I tching d enies. D enies?Mole(s), changes in moles, new moles or any lesions of concern. D enies P hotosensitivity. R beth d enies. N eurologic: Dizziness d enies. F ainting d enies. H eadache?denies. * Medical History: * Surgical History: * Hospitalization/Major Diagno stic Procedure: * Family History: F ather: alive 64 yrs. M other: alive 63 yrs. M aternal Grand Mother: , diabetes. [...] status: single. Occupation: works full-time. Pets: none. Travel outside of the [place]: no. * Medications: T akingMirena (52 MG) 20 MCG/24HR Intrauterine Device Intrauterine Albuterol Sulfate HFA 108 (90 Base) MCG/ACT Aerosol Solution 1 puff as needed Inhalation every 4 hrs Advair Diskus 250-50 MCG/ACT Aerosol Powder Breath Activated 1 puff Inhalation Twice a day Sertraline HCl 100 MG Tablet TAKE ONE TABLET BY MOUTH EVERY DAY Taking Mirena (52 MG) 20 MCG/24HR Intrauterine Device Intrauterine Taking Albuterol Sulfate HFA 108 (90 Base) MCG/ACT Aerosol Solution 1 puff as needed Inhalation every 4 hrs Taking Advair Diskus 250-50 MCG/ACT Aerosol Powder Breath Activated 1 puff Inhalation Twice a day Taking Sertraline HCl 100 MG Tablet TAKE ONE TABLET BY MOUTH EVERY DAY Not-Taking/PRNTylenol Extra Strength 500 MG Tablet 1 tablet as needed Orally every 6 hrs Lexapro 10 MG Tablet 1 tablet Orally Once a day Ambien 5 MG Tablet 1 tablet at bedtime Orally Once a day Ventolin HFA * 0 Aerosol Solution 2 puffs as needed Inhalation every 4 hrs Medication List reviewed and reconciled with the patientNot-Taking/PRN Tylenol Extra Strength 500 MG Tablet 1 tablet as needed Orally every 6 hrs Not-Taking/PRN Lexapro 10 MG Tablet 1 tablet Orally Once a day Not-Taking/PRN Ambien 5 MG Tablet 1 tablet at bedtime Orally Once a day Not-Taking/PRN Ventolin HFA * 0 Aerosol Solution 2 puffs as needed Inhalation every 4 hrs Medication List reviewed and reconciled with the patient * Allergies: C ipro: rash Objective: * Vitals: H t: 64.25, Wt: 143, BMI:24.35, BP:104/62, Wt-k.86. weight is down 3 pounds since 11-16-23. * P ast Orders: L ab:Complete Blood Count Auto Diff (Order Date - 11/11/2024) (Collection Date & Time - 11/11/2024 07:30 AM) Value Reference Range White Blood Count 5.0 4.8-10.8 - X10*3/uL Red Blood Count 4.28 4.20-5.50 - X10*6/uL Hemoglobin 13.2 12.0-16.0 - g/dl Hematocrit 39.1 37.0-47.0 - % Mean Corpuscular Volume 91.4 80.0-98.0 - fL Mean Corpuscular Hemoglobin 30.8 27.0-33.0 - pg Mean Corpuscular HGB Conc 33.8 31.0-35.0 - g/ dl Red Cell Distribution Width 12.4 11.0-16.0 - % Platelet Count 263 160-400 - X10*3/uL Mean Platelet Volume 9.7 9.4-12.3 - fL Neutrophils Percent Auto 59.1 45-73 - % Imm Gran Pct Auto 0.0 0.0-0.4 - % Lymphocytes Percent Auto 33.1 20-40 - % Monocytes Percent Auto 5.4 2-11 - % Eosinophils Percent Auto 1.8 0-4 - % Basophils Percent Auto 0.6 0-2 - % NRBC Pct Auto 0.0 0.0-0.2 - /100WBC Neutrophils Absolute Auto 2.9 2.0-8.3 - x10* 3/uL Imm Gran Abs Auto 0.00 0.00-0.03 - X10*3/uL Lymphocytes Absolute Auto 1.7 1.2-4.9 - X10* 3/uL Monocytes Absolute Auto 0.3 0.1-1.2 - X10*3/ uL Eosinophils Absolute Auto 0.1 0.0-0.4 - X10* 3/uL Basophils Absolute Auto 0.0 0.0-0.2 - X10*3/ uL NRBC Abs Auto 0.000 0.0-0.012 - X10*3/uL L ab:Comprehensive Rogers. Panel Fast (Order Date - 11/11/2024) (Collection Date & Time - 11/11/2024 07:30 AM) Value Reference Range Sodium 139 135-145 - mmol/L Bilirubin Total 0.8 0.0-1.0 - mg/dL Aspartate Amino Transferase 28 5-31 - U/L Alanine Aminotransferase 22 0-31 - U/L Total Protein 7.0 6.5-8.0 - g/dL Albumin Level 4.2 3.5-5.0 - g/dL Alkaline Phosphatase 63 39-117 - U/L Potassium 4.0 3.3-5.1 - mmol/L Chloride 107 96-108 - mmol/L Carbon Dioxide 27 22-29 - mmol/L Anion Gap 9 L 12-20 - Blood Urea Nitrogen 13 9-16 - mg/dL Creatinine 0.68 0.5-1.4 - mg/dL Estimated Glomerular Filt Rate > 60 - Glucose Fasting 93 60-99 - mg/dL Calcium 9.1 8.4-10.2 - mg/dL L ab:Lipid Panel (Order Date - 11/11/2024) (Collection Date & Time - 11/11/2024 07:30 AM) Value Reference Range Triglycerides 74 <150 - mg/dL Cholesterol 191 <200 - mg/dL LDL Cholesterol Calculated 113 H <100 - mg/dL HDL Cholesterol 64 >40 - mg/dL * Examination: G eneral Examination: GENERAL APPEARANCE: w ell developed, well nourished, in no acute distress. HEAD: n ormocephalic, atraumatic. EYES: p upils equal, round, reactive to light and accommodation, sclera non-icteric. EARS: n ormal. ORAL CAVITY: m ucosa moist. THROAT: c lear. NECK/THYROID: n haris supple, full range of motion, no cervical lymphadenopathy, no bruits with a pea sized node in the laeft ant chain that is smooth and freely movable and feels benign. SKIN: w arm and dry, no suspicious lesions. HEART: r egular rate and rhythm, S1, S2 normal, no murmurs.? LUNGS: c lear to auscultation bilaterally. BREASTS: N o mass, no lump. ABDOMEN: s oft, nontender, nondistended, bowel sounds present, normal, no organomegaly , no masses palpable. RECTAL EXAM: d one by warrant clerk. FEMALE GENITOURINARY: d one by warrant clerk. EXTREMITIES: n o clubbing, cyanosis, or edema on careful exam of both axillae there is no lump felt and the area of which she is concerned feels like a muscle.? NEUROLOGIC: n onfocal, motor strength normal upper and lower extremities, sensory exam intact. Assessment: * Assessment: 1. A nnual physical exam - Z00.00 (Primary) 2 . L abyrinthine dysfunction, bilateral - H83.2X3 3 . L ethargy - R53.83 4 . A nxiety - F41.9 5 . D epression screening - Z13.31 Plan: * Treatment: 2. L abyrinthine dysfunction, bilateral Notes: refer to physical therap for labyrinth therapy ? Referral To:[facility]. [facility] Physical Therapist Reason:Labyrinthine dysfunction bilateral please eval and treat for labyrinth therapy 3. L ethargy Notes: pending labs, will continue to monitor 4. A nxiety Notes: stable, will continue current regiment 5. D epression screening Notes: negative screen * Procedure Codes: 3 6415 VENIPUNCT, ROUTINE* * Follow Up: 6 Months * * Sign off status: Completed true * Provider: Gaudencio Cobb MD Date: 0 11/18/2024 Generated for lSavai jose/Criss/eTransmitting on: 1 01:53 PM EDT History and Physical Notes * HPI (History of Present Illness) Category Sub-Category Detail Notes Category Not es Symptom(s) patient is a 33 yo female here for annul visit with review of recent labs and follow up of chronic issue. Depression Screening PHQ-9 Little inte rest or pleasure in doing things: Not at all gets light headed for a couple seconds at time. today Feeling down, depressed, or hopeless: No t at all Trouble falling or staying asleep, or sl eeping too much: Not at all Feeling tired or having little energy: N ot at all Poor appetite or overeating: Not at all Feeling bad about yourself o r that you are a failure, or have let yourself or your family down: Not at all Trouble concentrating on thi ngs, such as reading the newspaper or watching television: Not at all Moving or speaking so slowly that other people could have noticed; or the opposite, being so fidgety or restless that you have been moving around a lot more than usual: Not at all Thoughts that you would be b sage off or of hurting yourself in some way: Not at all Total Score: 0 Interpretation and Intervention Depression Jh gong Findings: Negative Follow-Up for Depression: : review of PH Q-9 found negative result, no follow-up needed SDOH Questions SDOH Questions In the past [...] round, reactive to light and accommodation, sclera non-icteric EARS: normal THROAT: clear NECK/THYROID: neck supple, full ra nge of motion, no cervical lymphadenopathy, no bruits with a pea sized node in the laeft ant chain that is smooth and freely movable and feels benign HEART: regular rate and rhy thm, S1, S2 normal, no murmurs LUNGS: clear to auscultatio n bilaterally ABDOMEN: soft, nontender, non distended, bowel sounds present, normal, no organomegaly , no masses palpable NEUROLOGIC: nonfocal, motor stre ngth normal upper and lower extremities, sensory exam intact SKIN: warm and dry, no lennie picious lesions EXTREMITIES: no clubbing, cyanosi s, or edema on careful exam of both axillae there is no lump felt and the area of which she is concerned feels like a muscle BREASTS: No mass, no lump RECTAL EXAM: done by warrant clerk FEMALE GENITOURINARY: done by warrant clerk ORAL CAVITY: mucosa moist Consultation Request Notes Referral Date Referring Provider Referred Provider Not es 11/18/2024 Sourav Cobb [facility] Labyrinth ine dysfunction bilateral please eval and treat for labyrinth therapy
[2025-05-05 10:50] VITALS: BP 122/76; PULSE 72; RESP 16; TEMP 36.5; O2SAT 95; BMI 24.6
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
[2025-05-05 11:45] VITALS: BP 122/76; PULSE 72; RESP 16; TEMP 36.5; O2SAT 95
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
--- OUTSIDE RECORDS SUMMARY | 2025-05-05 13:53 | XMS_ITS | Patient Health Record ---
Author Organization Sourav Cobb MD Address [address] [place], [place] [phone] Care Team Providers Care Retail Planning Manager Name Role Phone Sourav Cobb Primary Care Provider [phone] Allergies Allergen (clinical drug ingredient) Drug/Non Drug Allergy documented on EMR Reaction Allergy Type Onset Date Status ciprofloxacin Cipro rash Drug Allergy Act emmett Results Component Value Reference Range Notes Complete Blood Count Auto Di ff Reviewed date:11/11/2024 03:37:09 PM Interpretation: Performing Lab:[facility], [address] [place] [phone] Notes/Report: White Blood Count 5.0 4.8-10.8 X10*3/uL [...] NRBC Abs Auto 0.000 0.0-0.012 X10*3/uL Comprehensive [place]. Panel Fa Reviewed date:11/11/2024 10:29:23 AM Interpretation: Performing Lab:[address] [phone] Notes/Report: Sodium 139 135-145 mmol/L Potassium 4.0 [...] Panel Reviewed date:11/11/2024 10:25:56 AM Interpretation: Performing Lab:[facility], [address] [place] [phone] Notes/Report: Triglycerides 74 <150 mg/dL Desirable Triglyceride: [...] low results in patients with liver disease. TSH reflex Free T4 Reviewed date:11/18/2024 05:02:23 PM Interpretation: Performing Lab:[facility], [address] [place] [phone] Notes/Report: TSH reflex Free T4 1.52 0.32-4.0 uIU/mL UA ClnCatch+Micro w/rflx Cul t Reviewed date:11/20/2024 03:41:27 PM Interpretation: Performing Lab:[facility], [address] [place] [phone] Notes/Report: Urine, Clean Catch Color Urine Yellow Appearance Urine Cloudy PH 6.5 5.0-9.0 Glucose Urine UA Negative Negative mg/dL Urine Blood Negative Negative Specific Edwards - Urine 1.020 1.005-1.025 Urine Protein Negative Neg-Trace mg/dL Urine Ketones Negative Negative mg/dL Nitrite Urine Negative Negative Leukocyte Esterase Urine Negative Negative RBC Urine 0-2 0-2 /HPF WBC Urine 0-5 0-5 /HPF Squamous Epithelial Cell Urine 0-2 0-2 /HPF Bacteria Urine Trace None Seen Hyaline Casts Urine 0-2 0-2 /LPF Hold Gold Reviewed date:11/18/2024 12:19:13 PM Interpretation: Performing Lab:[facility], [address] [place] [phone] Notes/Report: Hold Gold See Note Specimen held untested for 24 hours; Call to request Chemistry testing. Reason For Referral Reason Labyrinthine dysfunc tion bilateral please eval and treat for labyrinth therapy Diagnosis 1 Labyrinthine dysfunc tion, 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) Referral Organization Sourav Cobb MD Referring Provider First Name Sourav Referring Provider Last Name Reza Referring Provider Speciality Internal M edicine Referred Provider [facility] Referred Provider Specialty Physical The rapist General Notes Tamika Linda 0 11/18/2024 08:57:13 AM > patient will be making her own appt/ referral info faxed, Tamika Linda 11/25/2024 11:31:00 AM > patient is aware of appt Referral Priority Routine Referral Appointment Date 12/02/2024 Medications Medication SIG (Take, Route, Frequency, Duration) Notes Start Date End Date Status Ventolin HFA * 0 2 puffs as needed Inhalation every 4 hrs for 17 Not-Taking Advair Diskus 250-50 MCG/ACT 1 puff Inhalation Twice a day 11/16/2023 Active Tylenol Extra Strength 500 MG 1 tablet as needed Orally every 6 hrs Not-Taking Lexapro 10 MG 1 tablet Orally Once a day for 30 Not-Taking Ambien 5 MG 1 tablet at bedtime Orally Once a day for 30 days 06/20/2016 Not-Taking Mirena (52 MG) 20 MCG/24HR Intrauterine Active Albuterol Sulfate HFA 108 (90 Base) MCG/ACT 1 puff as needed Inhalation every 4 hrs 06/23/2023 Active Sertraline HCl 100 MG TAKE ONE TABLET BY MOUTH EVERY DAY for 30 Active Immunizations Vaccine Route Administration Date Status Comme nts Flu Vaccine Unknown 06/08/2014 Administered At [facility] Flu Vaccine IM Intramuscular 05/24/2015 Administered Fluarix Quadrivalent IM Intramuscular 06/09/2016 Administered Fluarix Quadrivalent IM Intramuscular 06/23/2017 Administered TDaP Unknown 01/05/2017 Administered pt was [facility] 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) Active confirmed Problem 53453985132900753 Acute recurren t frontal sinusitis (J01.11) Active confirmed Problem 987519744 Family history of congenital heart defect (Z82.79) Active confirmed Problem 23246181 Dysthymia (F34.1) Active confirmed Problem 1515697 Tonsillith (J35.8) Active confirmed Problem 083873997 Active asthma (J45.909) Active confirmed Vital Signs [...] Location Date Provider Diagnosis Sourav Cobb MD [address] [place] [address] Drive [address] [place] [phone] 11/11/2024 Soruav Cobb Blood tests for routine general physical examination Z00.00 Sourav Cobb MD [address] [place] [address] Drive [address] [place] [phone] 11/18/2024 Sourav Cobb Annual physical exam Z00.00 ; Labyrinthine dysfunction, bilateral H83.2X3 ; Lethargy R53.83 ; Anxiety F41.9 and Depression screening Z13.31 Sourav Cobb MD [address] [place] [address] [place] [phone] 06/06/2024 Sourav Cobb Assessments Encounter Date Diagnosis [...] 07/03/2023 US SOFT TISSUE 11/16/2023 ECHO 05/18/2015 UA ClnCatch+Micro w/rflx Cult 11/11/2024 Next Appt Details Provider Name:Sourav camarena, 06/06/2025 08:30:00 AM, [address] [place] [address], [place] [address], [place], [place], [phone], Provider Name:Sourav camarena, 10/26/2025 07:00:00 AM, [address] [place] [address], [place] [address], [place], [place], [phone], Provider Name:Sourav camarena, 11/02/2025 08:30:00 AM, [address] [place] [address], [place] [address], [place], [place], [phone], Insurance Providers Payer Name Payer Address Payer Phone Subscriber Number Group Number Insured Name Patient Relationship to Insured Coverage Start Date Coverage End Date [employer] [place] [address] [place], [place] [id number] [phone] [id number] Stephani Chambers Self - patient is the insured [place] [address] [phone] [id number] Stephani Chambers Self - patient is the insured Medical (General) History Medical History History 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
== END 2025-05-05 11:46 | disposition home or self-care (01) ==
PROVIDERS: Emergency Provider Emergency Medicine; PCP Internal Medicine
DX: S06.0X0A Concussion without loss of consciousness, initial encounter (principal); R42 Dizziness and giddiness; R68.84 Jaw pain; X58.XXXA Exposure to other specified factors, initial encounter; Y93.9 Activity, unspecified; Y92.219 Unspecified school as the place of occurrence of the external cause; Y99.0 Civilian activity done for income or pay
CPT/HCPCS: 99282; 99283

== ENCOUNTER → 2025-05-08 10:31 | Outpatient (BNVA) | payer OTHER, SELFPAY | PROVIDERS: PCP Internal Medicine; Visit Provider Emergency Medicine | DX: S06.0X0A Concussion without loss of consciousness, initial encounter (principal); W50.0XXA Accidental hit or strike by another person, initial encounter; R11.0 Nausea; R42 Dizziness and giddiness; H57.11 Ocular pain, right eye | CPT/HCPCS: 99214 ==

== ENCOUNTER → 2025-05-10 12:58 | Outpatient (BNVA) | payer OTHER, SELFPAY | PROVIDERS: PCP Internal Medicine; Visit Provider Emergency Medicine | DX: S06.0X0A Concussion without loss of consciousness, initial encounter (principal); W50.0XXA Accidental hit or strike by another person, initial encounter; R51.9 Headache, unspecified; R42 Dizziness and giddiness; H53.149 Visual discomfort, unspecified | CPT/HCPCS: 70450; 99215 ==